=== PATIENT | male | born 1960 | race Caucasian/White ===

== ENCOUNTER 2020-02-22 05:10 | Observation (INO) ==
--- NOTE | 2020-01-19 15:17 | PAT Medication Instructions ---
Medication Instructions Date of Service January 19, 2020 Home Medications Medication Instructions Recorded omega-3 fatty acids 1,000 mg 1,000 mg PO BID #180 cap 12/13/19 capsule fluconazole 150 mg tablet 150 mg PO Q7D 0 Days #2 tab 01/17/20 ketoconazole 2 % topical cream 1 appln TOP BID #60 gm 01/17/20 aspirin 325 mg tablet 325 mg PO QAM omega-3 fatty acids 1,000 mg capsule 1,000 mg PO BID fenofibrate nanocrystallized 145 mg PO QAM fluconazole 150 mg tablet 150 mg PO Q7D ketoconazole 2 % topical cream 1 appln TOP BID Continue as directed fluconazole 150 mg tablet 150 mg PO Q7D ASK your prescriber and surgeon aspirin 325 mg tablet 325 mg PO QAM STOP taking 2 weeks before surgery (or as soon as possible if surgery is within 2 weeks) omega-3 fatty acids 1,000 mg capsule 1,000 mg PO BID STOP taking 48 hours before surgery fenofibrate nanocrystallized 145 mg PO QAM STOP taking 24 hours before surgery ketoconazole 2 % topical cream 1 appln TOP BID Other Notes If you have any questions please call us at [phone] or [phone] or [phone] or [phone]
--- NOTE | 2020-02-14 08:42 | Anesthesiology Consultation ---
Date of Service February 14, 2020 Assessment & Plan (1) Encounter for pre-operative examination: Per PAT assessment on 02/13: Travel screen: Lives in [facility]. No known COVID-19 positive contacts. No current COVID-19 related symptoms. Surgeon arranging preop COVID testing on 02/16 ([place]). Awaiting results. - ASA instructions per surgeon/prescriber Chart Review Chart Review: Acceptable Risk for Surgery and Patient seen in Pre Admission Testing Teaching & Discussion Pre-Anesthesia Teaching/Discussion Notes: Instructed NPO after midnight before surgery,except medications with 15 cc of water. Medication instructions provided according to the PAT guidelines. History Surgery Operation Date: 02/22/20 07:15 Proposed Procedures p Right Total Hip Replacement - Flakito Quevedo MD Height/Weight Height: 5 ft 11 in Weight: 100.5 kg Allergies Allergy/AdvReac Type Severity Reaction Status Date / Time No Known Allergies Allergy Verified 01/17/20 11:40 Medications Home Medications Medication Instructions Recorded Confirmed Last Taken aspirin 325 mg tablet 325 mg PO QAM 12/09/18 01/17/20 Unknown omega-3 fatty acids 1,000 mg 1,000 mg PO BID #180 cap 12/13/19 01/17/20 Unknown capsule fenofibrate nanocrystallized 145 mg PO QAM 01/17/20 01/17/20 Unknown Past Medical History Medical History (Updated 02/14/20 @ 08:55 by Tonia Horowitz) DVT (deep venous thrombosis) Left subclavian thrombus (2017); previously on xarelto/since discontinued Elevated triglycerides with high cholesterol (Chronic) History of renal calculi Liver abscess 2003, drained at [facility] [place] Osteoarthritis Exercise / Class Metabolic Activity II 4-5 Yardwork/Stairs/Walk up hill Past Family History Family History Mother Cancer, Onset Age: 70 pancreatic Diabetes Father Heart disease, Onset Age: 70 smoker Sister Breast cancer, Onset Age: 57 healthy now at age 60 Past Surgical History Surgical History History of colonoscopy x2 History of tooth extraction Hx of mastoidectomy as child Hx of nephrolithotomy with removal of calculi Past Anesthesia History No Hx of Anesthesia Complications and No Family Hx of Anesthesia Complications History of PONV No Hx of PONV and No Hx of Motion Sickness Social History Smoking Status: Current every day smoker tobacco type: cigarettes Smoking cigarettes per day: 10 (tobacco use x 30 years) Do You Dip or Chew Tobacco: No Hx Alcohol Use: No Hx Substance Use: No substance use type: does not use Review of Systems Patient denies chest pain, shortness of breath, dyspnea on exertion, fever, chills, cough, wheezing, palpitations. Physical Exam Vital Signs VITALS BP 142/89 P 80 TEMP 98.4 SP02 96%RA RESP 16 PHYSICAL Full neck and c-spine range of motion. Full TMJ range of motion. TMD 3 finger breaths Mallampati Score 2 Dentition: missing molars, + 2 caps (upper front, molar) Lungs: clear throughout to auscultation Cardiac: regular rate and rhythm, no murmurs noted Spine: normal Carotid arteries: negative bruit Extremities: no edema Testing Laboratory Results 02/14/20 09:00 02/14/20 09:00 PT 10.4 Seconds (9.0-12.0) 02/14/20 09:00 INR 1.0 (0.9-1.1) 02/14/20 09:00 APTT 26.2 Seconds (21.0-31.0) 02/14/20 09:00 Blood Type A Positive 02/14/20 09:00 Antibody Screen NEGATIVE 02/14/20 09:00 Electrocardiogram Date: 02/14/20 Findings: + NSR @ (68) Chest X-Ray Date: 02/14/20 FINDINGS: The cardiac and mediastinal contours are normal. There is no evidence of focal pulmonary consolidation. There is no evidence of failure. No pleural effusions are visualized.[Degenerative changes are present within the dorsal spine with bridging anterior osteophytosis IMPRESSION: No active disease in the chest. Echocardiogram Date: 08/05/16 EF 65%. No RWMA. Mildly increased cLV wall thickness. No significant valvular disease.
--- NOTE | 2020-02-14 09:43 | XRay Report ---
XR chest Pre-admission PA/Lat CLINICAL HISTORY: Preoperative chest COMPARISON STUDY: No previous studies for comparison. FINDINGS: The cardiac and mediastinal contours are normal. There is no evidence of focal pulmonary co nsolidation. There is no evidence of failure. No pleural effusions are visualized.[Degenerative cote es are present within the dorsal spine with bridging anterior osteophytosis IMPRESSION: No active disease in the chest. ACT 112: Negative or not required by law. Electronically signed by: Stefan Sanchez M.D. 02/14/2020 9:42 AM
[2020-02-14 10:10] LABS: Basophils # (auto) 0.02 K/uL (0-0.2); Basophils % (auto) 0.3 %; Eosinophils # (auto) 0.15 K/uL (0-0.5); Eosinophils % (auto) 2.2 %; Hematocrit (blood only) 43.2 % (42-52); Hemoglobin 14.3 g/dL (14.0-18.0); Immature Granulocytes # (auto) 0.02 K/uL (0.00-0.02); Immature Granulocytes % (auto) 0.3 %; Lymphocytes # (auto) 1.53 K/uL (1.2-3.4); Lymphocytes % (auto) 22.1 %; Mean Corpuscular Hemoglobin 29.2 pg (25-34); Mean Corpuscular Hgb Conc 33.1 g/dL (32-36); Mean Corpuscular Volume 88.2 fL (80-100); Mean Platelet Volume 11.2 fL (7.4-10.4); Monocytes % (auto) 5.8 %; Neutrophils # (auto) 4.79 K/uL (1.4-6.5); Neutrophils % (auto) 69.3 %; Platelet Count 196 K/uL (130-400); RDW Coefficient of Variation 13.4 % (11.5-14.5); RDW Standard Deviation 43.1 fL (36.4-46.3); White Blood Count 6.91 K/uL (4.8-10.8)
[2020-02-14 10:19] LABS: BUN Creatinine Ratio 13.3 (10-20); Calcium 9.8 mg/dl (8.5-10.1); Creatinine Clr Calc Pharmacy 79.1 ml/min; Est GFR (African American) 74.5; Est GFR (Non-African American) 64.3; Potassium 4.5 mmol/L (3.5-5.1)
[2020-02-14 10:21] LABS: Partial Thromboplastin Ratio 0.9; Partial Thromboplastin Time 26.2 Seconds (21.0-31.0); Prothrombin Time 10.4 Seconds (9.0-12.0)
--- NOTE | 2020-02-14 11:40 | Electrocardiogram Report ---
Test Reason : Blood Pressure : / mmHG Vent. Rate : 068 BPM Atrial Rate : 068 BPM P-R Int : 158 ms QRS Dur : 086 ms QT Int : 382 ms P-R-T Axes : 070 046 062 degrees QTc Int : 406 ms Normal sinus rhythm Normal ECG No previous ECGs available Confirmed by Miguel Angel Cintron ([id number]) on 02/14/2020 11:40:27 AM Referred By: Flakito Quevedo Confirmed By:Eleuterio Cintron
--- NOTE | 2020-02-18 12:38 | History and Physical Report ---
DATE OF ADMISSION: 02/22/2020 CHIEF COMPLAINT: Right hip pain. HISTORY OF PRESENT ILLNESS: The patient is a 59-year-old gentleman who presents for surgical treatment of the right hip. He has a several year history of gradually increasing right hip pain and discomfort. He describes fairly classic groin pain, thigh pain, lateral hip pain. 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 He takes Tylenol, occasional anti-inflammatories which do not quite help much. He has been to pain clinic and had some nerve burning in his back, which has not helped with his hip pain but help some of his back pain. He has difficulty putting his shoes and socks on. Pain is a good as day goes on. He limps more as the day goes on. He would like to have his right hip fixed. PAST MEDICAL HISTORY: 1. DVT in his left upper extremity 2 years ago with a negative workup and off all blood thinners except for aspirin. 2. Elevated cholesterol. PAST SURGICAL HISTORY: Includes: 1. Abscess removed from his liver in 2003. 2. Kidney stone. 3. Nerve ablations in his back in 2019. ALLERGIES: None. CURRENT MEDICATIONS: 1. Aspirin. 2. [place]-3. 3. Fenofibrate. SOCIAL HISTORY: A 59-year-old male. He lives in [place]. He is . Two children. Rare alcohol intake. FAMILY HISTORY: Significant for diabetes and heart disease. REVIEW OF SYSTEMS: Significant for DVT in his upper extremity. He had a negative hematological workup. No known clotting disorder. Denies any chest pain or shortness of breath. No history of DVT or PE. No known bleeding problems. PHYSICAL EXAMINATION: GENERAL: Shows a pleasant, middle-aged male, looks to be in pretty good health. HEENT: Benign. NECK: Supple, no lymphadenopathy. LUNGS: Clear to auscultation. HEART: Regular rate and rhythm. ABDOMEN: Soft, nontender, nondistended. EXTREMITIES: Grossly neurovascularly intact except as follows. Examination of the right leg reveals the patient walks with a slight bit of a limp. Leg lengths clinically appear pretty equal. Maybe just a trace bit short on the right side. He has a very stiff hip with internal rotation to neutral, which recreates his pain. Negative straight leg raise. He is neurologically intact. X-RAYS: X-rays of the right hip were reviewed. Shows advanced right hip DJD. He has got complete loss of his superior joint space. Extensive osteophytes around the acetabulum and femoral head. He has got cystic change of the femoral head and acetabulum. ASSESSMENT: A 59-year-old male with advanced right hip degenerative joint disease. He has failed conservative treatment and would like to have his right hip replaced. PLAN: We are going to proceed with right total hip replacement. The risks and benefits of this procedure were explained to the patient including but not limited to DVT, PE, , infection, neurological injury, vascular injury. Persistent pain, incomplete relief of symptoms, need for blood transfusion, leg length inequality, fracture, nerve palsy, etc. The patient understands and desires to proceed. Informed consent was obtained. He does have a history of 1 DVT in his upper extremity and a negative workup. We will plan on using aspirin twice a day and CRISTIAN stockings and SCDs for DVT prophylaxis along with early mobilization. He does have a significant smoking history and we have counseled him on this previously. He will likely need a patch in the hospital.
[2020-02-22] MEDS ORDERED: LR 60ML/HR IV SCH (06:00)
[2020-02-22] MEDS ORDERED: GABAPENTIN 600 MG DOSE PO SCH (06:00)
[2020-02-22] MEDS ORDERED: CEFAZOLIN 2000MG 2,000 MG/15 ML SYR IV SCH (06:00)
[2020-02-22] MEDS ORDERED: METOCLOPRAMIDE HCL 10 MG TABLET PO SCH (06:00)
[2020-02-22] MEDS ORDERED: ACETAMINOPHEN 500 MG TAB PO SCH (06:00)
[2020-02-22] MEDS ORDERED: TRANEXAMIC ACID 1,000 MG **IV Pre-op IV SCH (06:00)
[2020-02-22] MEDS ORDERED: FAMOTIDINE 20 MG TAB PO SCH (06:00)
[2020-02-22] MEDS ORDERED: LR 500ML BOLUS, THEN 15ML/HR IV SCH (06:00)
[2020-02-22] MEDS ORDERED: BUPIVACAINE 0.5 % 5 MG/1 ML PF 10ML VIAL ONE (06:18)
[2020-02-22] MEDS ORDERED: LIDOCAINE HCL 2% 2 ML VIAL/AMP(20MG/ML) INFIL ONE (06:41)
[2020-02-22] MEDS ORDERED: MIDAZOLAM HCL 1 MG/ML 2ML VIAL ONE ×3 (06:41→07:54)
[2020-02-22] MEDS ORDERED: fentaNYL citrate 100 MCG/2 ML VIAL ONE (06:41)
[2020-02-22] MEDS ORDERED: PROPOFOL IV EMULSION 10 MG/ML 20 ML VIAL IV ONE (06:41)
--- NOTE | 2020-02-22 06:45 | History & Physical Bridge Note ---
Date of Service February 22, 2020 History & Physical Bridge Note I have examined the patient, reviewed the History & Physical and in the interval since the performance of the History & Physical I have noted the following changes of clinical significance: no changes noted
[2020-02-22] MEDS ORDERED: MoRPHine SULFATE PF 1 MG/ML 10 ML AMP/VIAL ONE (07:00)
[2020-02-22] MEDS ORDERED: BUPIVACAINE 0.5 % 5 MG/1 ML MPF 30ML VIAL ONE (07:00)
[2020-02-22] MEDS ORDERED: BACITRACIN INJ 50,000 UNIT VIAL ONE (07:00)
[2020-02-22] MEDS ORDERED: EPINEPHrine INJ 1 MG/ML AMP ONE (07:00)
[2020-02-22] MEDS ORDERED: ONDANSETRON INJ 2 MG/ML 2 ML VIAL IV PRN (07:27)
[2020-02-22] MEDS ORDERED: MoRPHine SULFATE 2 MG/ML CARP IV PRN (07:27)
[2020-02-22] MEDS ORDERED: NALOXONE HCL 1 MG in SODIUM CHLORIDE 0.9% 1000ML 1,000 ML IV PRN (07:27)
[2020-02-22] MEDS ORDERED: ePHEDrine sulfate 50 MG/ML AMP IV PRN (07:27)
[2020-02-22] MEDS ORDERED: NALOXONE HCL 0.08 MG in SYRINGE 1.8 ML IV PRN (07:27)
[2020-02-22] MEDS ORDERED: MoRPHine SULFATE PF 1 MG/ML 10 ML AMP/VIAL INT SPINAL ONE (07:27)
[2020-02-22] MEDS ORDERED: LACTATED RINGER'S 500 ML IV PRN (07:27)
[2020-02-22] MEDS ORDERED: DiphenhydrAMINE HCL 50 MG/ML VIAL IV PRN (07:27)
[2020-02-22] MEDS ORDERED: NALOXONE HCL 0.4 MG/1 ML VIAL/CARP IV PRN (07:27)
[2020-02-22] MEDS ORDERED: DC INTRASPINAL MORPHINE SCH (07:30)
[2020-02-22] MEDS ORDERED: SODIUM CHLORIDE 0.9% 1000ML 1,000 ML IV SCH (07:30)
[2020-02-22] MEDS ORDERED: NO NARCOTICS OR SEDATIVES SCH (07:30)
[2020-02-22] MEDS ORDERED: SODIUM CHLORIDE 0.9% INJ 10 ML VIAL ONE (08:31)
--- NOTE | 2020-02-22 08:40 | Post Operative Brief Note ---
PG Immediate Post Op with CF Date of Surgery February 22, 2020 Pre & Post Diagnosis Operation Date: 02/22/20 07:15 Pre-Op Diagnosis: RIGHT HIP DEGENERATIVE JOINT DISEASE Post-Op Diagnosis: RIGHT HIP DEGENERATIVE JOINT DISEASE I identified the patient and participated in the time-out.: Yes Procedure Operation Date: 02/22/20 07:15 Actual Procedures p Right Total Hip Replacement(Right) - Flakito Quevedo MD Surgeon Flakito Quevedo MD Precision Jig Grinder Catrina, PAC Estimated Blood Loss 200 Findings Consistent with Post-Op Diagnosis Fluids 1200 cc Specimens Specimen Description: Permanent Specimen: A) Right Femoral Head Drains Mendoza Catheter and Hemovac Drain Anesthesia Type Spinal MAC Complications none Disposition Accompanied Patient To Recovery: Yes Disposition: Recovery Room
--- NOTE | 2020-02-22 08:59 | XRay Report ---
SINGLE VIEW PELVIS; SINGLE VIEW RIGHT HIP CLINICAL HISTORY: Postoperative examination. FINDINGS: An AP portable view of the hips and pelvis with a crosstable lateral portable view of the r ight hip are obtained. A bipolar right hip arthroplasty is in near-anatomic alignment. At least 2 cor tical lag screws transfix the acetabular cup. No acute fracture is identified. There are expected pos toperative changes overlying the right hip including skin clips, subcutaneous gas, and soft tissue s welling. Mild degenerative narrowing is seen in the left hip. A Mendoza catheter is in place. IMPRESSION: Expected postoperative findings status post right hip arthroplasty. No acute fracture is seen. ACT 112: Negative or not required by law. Electronically signed by: Ashok Hickman M.D. 02/22/2020 8:58 AM
--- NOTE | 2020-02-22 09:03 | Operative Report ---
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 He had extensive grade 4 [id number] disease of the femoral head and acetabulum. Pretty significant medial osteophyte as well as anterior acetabular osteophytes. Fluids 1200 cc. Specimens Right femoral head sent for pathology. Drains None. 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 He failed all conservative measures. It was really limit his activities and even ability to perform his job appropriately. X-ray showed advanced hip DJD. He elected proceed with surgical treatment. Description of Procedure Operative implants consist of: 1. Biomet G7 size 56 mm acetabular shell. 2. 6.5 cancellus acetabular screws 1 of 35 mm length and 125 mm length. 3. What Cheer hole vp legal affairs. 4. Highly cross-linked polyethylene liner with a 56 mm outer diameter and 36 mm inner diameter. 5. Depuy Corail size 11 KLA femoral stem. 6. +5/36 mm ceramic articular ball. Patient was taken to the operating identified and placed on the operating table supine position protectors were properly padded. IV antibiotics arrived by anesthesia team. A spinal anesthetic had been implemented holding area. Mendoza catheter was placed in sterile fashion. The patient then placed in the left lateral cubitus position. An axillary roll was placed. Stulberg hip positioner was used for positioning. The right hip and leg were then prepped and draped in usual sterile fashion. A posterior lateral approach to the right hip was then performed to a curvilinear incision centered over the greater trochanter. Sharp dissection got through subcutaneous tissue down to level the IT band gluteal fascia the IT band gluteal fascia were then incised longitudinally in line with the skin incision. The underlying greater truck bursa was excised. The piriformis and external rotators were tagged and taken off the posterior aspect hip joint capsule. Great care was taken throughout the procedure protect the sciatic nerve at all times. A posterior capsulotomy was then performed leaving a large flap for later repair. Hip was internally rotated and dislocated. Femoral neck osteotomy cut was made with Final Cut 14 mm above the lesser trochanter. Femoral head was removed and sent for pathology. The femur was retracted anteriorly. Attention drawn the acetabulum. The acetabular labrum was excised. The pulmonary fat was excised. Sequential reaming the acetabular was then performed again with size 45 and progressing up to 55. We did reamed centrally but I did not want a medialized this too much as he had quite a bit of offset and I did not 1 of make his hip soft tissue tension to lax. A 56 mm Biomet G7 acetabular shell was then placed in about 40 degrees lateral opening and 20 degrees of anteversion. Was fixed with two 6.5 cancellus acetabular screws. An anterior acetabular osteophyte was excised. Trial liner was placed. Attention drawn the femur. The proximal femur was entered with a cookie-cutter followed by canal finder. I then broached begin the size 8 and progressing up to 11. Got excellent fit at 11. A +5 articular ball was then checked. The soft tissue tension was little bit lax but was extremely stable in all positions and leg length seemed equal so we elected to place these implants. All trial implants were removed. An apex hole eliminator was placed. Highly cross-linked polyethylene liner was placed. I [place] Corail size 11 KLA femoral stem was then impacted in position. A +5/36 mm ceramic articular ball was placed. Hip was located once again found to be stable. Attention drawn toward closing. The wound was irrigated with copious amounts of pulsatile lavage solution. I did inject locally with 60 cc of half percent Marcaine with epinephrine. The posterior capsule and external rotators were then repaired through drill holes in the posterior trochanter with #2 Tycron suture. The IT band gluteal fascia then closed #1 PDS suture running fashion. The subcutaneous tissue was then closed with 2 layers the deep layer #1 Vicryl suture and subcutaneous tissues with 2-0 Dexon suture in a buried interrupted fashion the skin was then closed with skin bia. Leg was then cleaned dried a sterile dressing composed of Xeroform, 4 x 4's, ABD pad and foam tape was applied. Patient then transferred to the recovery in stable condition. The patient tolerated procedure well and there were no complications. Barrington Fritz, my physician blacksmith assistant, was present for the entire procedure. His presence was critical to appropriate positioning, prepping and draping, surgical exposure, performing the technical details of the operation, placement of the implants, closure of the wound, and placement of the sterile bandage. I attest to the content of the Intraoperative Record and any orders documented therein. Any exceptions are noted below.
[2020-02-22] MEDS ORDERED: MAGNESIUM HYDROXIDE SUSP 30 ML UDC PO PRN (09:45)
[2020-02-22] MEDS ORDERED: bisacodyL 10 MG SUPP PR PRN (09:45)
[2020-02-22] MEDS ORDERED: TAMSULOSIN HCL 0.4 MG CAP PO PRN (09:45)
[2020-02-22] MEDS ORDERED: ALUMINUM/MAGNESIUM SUSP 30 ML UDC PO PRN (09:45)
[2020-02-22] MEDS: SODIUM CHLORIDE 0.9% 1000ML 1,000 ML IV SCH ×3 (10:15→23:22)
[2020-02-22] MEDS: MULTIVITAMIN TAB PO SCH (10:32)
[2020-02-22] MEDS: ASPIRIN 81 MG ECTAB PO SCH ×2 (10:32→20:37)
[2020-02-22] MEDS: DOCUSATE SODIUM 100 MG CAP PO SCH ×2 (10:32→20:37)
[2020-02-22] MEDS: FENOFIBRATE NANOCRYSTALLIZED 145 MG TABLET PO SCH (10:33)
[2020-02-22] MEDS: KETOROLAC 30 MG/ML VIAL IV SCH ×3 (11:17→23:28)
[2020-02-22] MEDS: ACETAMINOPHEN 500 MG TAB PO SCH ×2 (13:09→21:20)
--- NOTE | 2020-02-22 13:59 | Progress Notes ---
DATE: 02/22/2020 SUBJECTIVE: A 59-year-old gentleman postop from a right hip replacement. He is doing well. Feels great. Does not have any pain yet. No chest pain or shortness of breath. Feels a little bit itchy and that is it. OBJECTIVE: VITAL SIGNS: Temperature 36.5. Vital signs stable. GENERAL: Physical examination shows a pleasant, middle-aged male. He is sitting up in bed and looks quite comfortable. LUNGS: Clear to auscultation. HEART: Has a regular rate and rhythm. ABDOMEN: Soft, nontender, nondistended. EXTREMITIES: Grossly neurovascularly intact except as follows. Examination of the right hip and leg reveals the leg lengths to be equal. His dressing is clean, dry and intact. His thigh is soft and supple. Hip is located. He is neurologically intact. X-RAYS: X-rays of the right hip from Recovery Room reviewed. It shows a right uncemented total hip arthroplasty. Components looked to be in good position. No signs of problems. ASSESSMENT: A 59-year-old gentleman postop from a right hip replacement, doing well. Pain is controlled. Hip is located. He is neurologically intact. PLAN: 1. DVT prophylaxis include thigh-high TEDs, SCDs, and aspirin twice a day. 2. PT/OT, weightbear as tolerated. Right total hip protocol. 3. Pain control, doing well with current pain regimen. 4. IV antibiotics x24 hours. 5. Disposition: Plan to discharge to home with some home health once adequately recovered and medically stable.
[2020-02-22] MEDS ORDERED: TRANEXAMIC ACID / 0.7% NACL 1,000 MG/100 ML BAG IV SCH (14:43)
--- NOTE | 2020-02-22 16:27 | Anesthesiology Progress Note ---
Date of Service February 22, 2020 Anesthesia Post Procedure Vital Signs Vital Signs: Temp Pulse Pulse Pulse Resp BP BP 02/22/20 15:30 16 02/22/20 15:14 36.7 C 60 18 119/72 02/22/20 14:36 15 02/22/20 13:35 16 02/22/20 12:35 36.5 C 62 17 118/77 02/22/20 11:35 17 02/22/20 11:33 36.4 C L 56 L 17 119/77 02/22/20 10:35 57 L 16 112/73 02/22/20 10:05 60 16 114/74 02/22/20 09:35 36.5 C 58 L 15 02/22/20 09:20 62 13 107/60 02/22/20 09:10 36.4 C L 63 14 107/67 02/22/20 09:00 61 17 105/57 L 02/22/20 08:50 62 17 96/66 L 02/22/20 08:41 36.0 C L 62 15 99/55 L 02/22/20 05:38 36.7 C 70 18 126/85 Pulse Ox Pulse Ox 02/22/20 15:30 96 02/22/20 15:14 98 02/22/20 14:36 96 02/22/20 13:35 97 02/22/20 12:35 97 02/22/20 11:35 96 02/22/20 11:33 96 02/22/20 10:35 95 02/22/20 10:05 96 02/22/20 09:35 96 96 02/22/20 09:20 95 02/22/20 09:10 94 02/22/20 09:00 100 02/22/20 08:50 100 02/22/20 08:41 99 02/22/20 05:38 96 Transfer of Care Handoff Completed per policy Notes Mental Status: alert / awake / arousable and participated in evaluation Patient Amnestic to Procedure: Yes Nausea / Vomiting: adequately controlled Pain: adequately controlled Airway Patency, RR, SpO2: stable & adequate BP & HR: stable & adequate Hydration State: stable & adequate Neuraxial Anesthesia: was administered and sensory block is resolving Anesthetic Complications: no major complications apparent and Pt Satisfied with anesthetic care
[2020-02-22] MEDS: CEFAZOLIN 2000MG 2,000 MG/15 ML SYR IV SCH ×2 (16:54→23:27)
[2020-02-22] MEDS: Scopolamine CHECK PATCH PLACEMENT SCH (16:54)
[2020-02-22] MEDS: ASCORBIC ACID 500 MG TAB PO SCH (16:54)
[2020-02-22] MEDS: FERROUS GLUCONATE 324 MG TAB PO SCH (16:54)
[2020-02-22] MEDS: OMEGA-3 (PURIFIED FISH OIL) 1 GM CAP PO SCH (20:37)
[2020-02-22] MEDS ORDERED: SENNA 8.6 MG TAB PO SCH (21:00)
[2020-02-23] MEDS: Scopolamine CHECK PATCH PLACEMENT SCH ×2 (01:16→07:12)
[2020-02-23] MEDS ORDERED: NALOXONE HCL 0.4 MG/1 ML VIAL/CARP IV PRN (01:28)
[2020-02-23] MEDS ORDERED: HYDROmorphone INJ 0.5 MG/0.5 ML SYR IV PRN (01:28)
[2020-02-23] MEDS ORDERED: ONDANSETRON INJ 2 MG/ML 2 ML VIAL IV PRN (01:28)
[2020-02-23] MEDS ORDERED: TRAMADOL HCL 50 MG TABLET PO PRN (01:28)
[2020-02-23] MEDS ORDERED: METOCLOPRAMIDE HCL INJ 5 MG/ML 2 ML VIAL IV PRN (01:28)
[2020-02-23] MEDS: KETOROLAC 30 MG/ML VIAL IV SCH ×2 (05:48→11:28)
[2020-02-23] MEDS: ACETAMINOPHEN 500 MG TAB PO SCH ×2 (05:48→13:51)
[2020-02-23 05:51] LABS: Basophils # (auto) 0.01 K/uL (0-0.2); Basophils % (auto) 0.1 %; Eosinophils # (auto) 0.08 K/uL (0-0.5); Hematocrit (blood only) 34.3 % (42-52); Hemoglobin 11.3 g/dL (14.0-18.0); Immature Granulocytes # (auto) 0.01 K/uL (0.00-0.02); Immature Granulocytes % (auto) 0.1 %; Lymphocytes % (auto) 11.2 %; Mean Corpuscular Hemoglobin 28.5 pg (25-34); Mean Corpuscular Hgb Conc 32.9 g/dL (32-36); Mean Corpuscular Volume 86.6 fL (80-100); Mean Platelet Volume 10.7 fL (7.4-10.4); Monocytes # (auto) 0.81 K/uL (0.11-0.59); Monocytes % (auto) 10.1 %; Neutrophils # (auto) 6.24 K/uL (1.4-6.5); Neutrophils % (auto) 77.5 %; Platelet Count 114 K/uL (130-400); RDW Coefficient of Variation 13.4 % (11.5-14.5); RDW Standard Deviation 42.8 fL (36.4-46.3); Red Blood Count 3.96 M/uL (4.7-6.1); White Blood Count 8.05 K/uL (4.8-10.8)
[2020-02-23] MEDS: SODIUM CHLORIDE 0.9% 1000ML 1,000 ML IV SCH (05:59)
[2020-02-23 06:24] LABS: BUN Creatinine Ratio 16.4 (10-20); Calcium 8.1 mg/dl (8.5-10.1); Creatinine Clr Calc Pharmacy 112.8 ml/min; Est GFR (African American) 110.8; Est GFR (Non-African American) 95.6; Potassium 4.4 mmol/L (3.5-5.1)
--- NOTE | 2020-02-23 07:28 | Orthopedic Progress Note ---
Date of Service February 23, 2020 Assessment & Plan (1) Status post total hip replacement, right: seen and examined by Dr. Quevedo today. d/c home today with home health, after PT continue pt/ot, wbat and total hip precautions. pain is controlled. dvt prophylaxis: teds, scds, aspirin Admission and Anticipated Discharge Date Admission Date: February 22, 2020 Subjective 59 y/o POD #1 from right total hip replacement. He's doing pretty well. Some groin pain and difficulty raising his right leg on his own. No chest pain or shortness of breath. Physical Exam Physical Exam: Alert and oriented. VSS, NAD Right leg: dressing clean, dry, intact. leg well aligned, hip located. NVI. Able to DF/PF, and flex his hip some. Results & Data ([facility]) Vital Signs (Past 12 Hours) Vital Signs Temp Pulse Resp BP Pulse Ox 02/23/20 07:18 36.9 C 68 17 133/78 96 02/23/20 03:46 36.8 C 73 18 121/68 97 02/23/20 00:30 16 97 02/22/20 23:15 36.7 C 76 18 116/72 96 02/22/20 21:30 16 97 02/22/20 20:30 18 96 02/22/20 19:31 36.8 C 67 18 146/69 H 97 PG Care Time/CCT Total # of Minutes Spent Total Time Spent with Patient: Total time spent is greater than 50% in coordination of care (as documented) at patient's floor/unit and/or counseling patient: Coding Level of Care Code None Diagnoses Status post total hip replacement, right Z96.641
[2020-02-23] MEDS: ASPIRIN 81 MG ECTAB PO SCH (08:32)
[2020-02-23] MEDS: OMEGA-3 (PURIFIED FISH OIL) 1 GM CAP PO SCH (08:32)
[2020-02-23] MEDS: ASCORBIC ACID 500 MG TAB PO SCH (08:32)
[2020-02-23] MEDS: DOCUSATE SODIUM 100 MG CAP PO SCH (08:32)
[2020-02-23] MEDS: FERROUS GLUCONATE 324 MG TAB PO SCH (08:32)
[2020-02-23] MEDS: MULTIVITAMIN TAB PO SCH (08:33)
[2020-02-23] MEDS: FENOFIBRATE NANOCRYSTALLIZED 145 MG TABLET PO SCH (08:33)
[2020-02-23 11:26] VITALS: BP 159/85; PULSE 62; TEMP 99; O2SAT 94
--- NOTE | 2020-02-27 16:16 | Discharge Summary ---
Date of Service February 27, 2020 Admission HPI Per Admitting Provider Documented in the H & P Admission Exam (Per Admitting) Constitutional Documented in the H & P Discharge Data Consultations 02/23/20 08:00 Consult Case Management - Discharge Planning Routine Procedures Performed Operation Date: 02/22/20 07:15 Actual Procedures p Right Total Hip Replacement(Right) - Flakito Quevedo MD Hospital Course (1) Status post total hip replacement, right: This patient is a 59 year old male admitted on 02/22/20 and underwent total hip arthroplasty. He tolerated the procedure well and there were no complications. Transferred to the PACU post op and later to the orthopedic floor for further care. He was given ancef for antibiotic prophylaxis. He was also gi ginger CRISTIAN stockings, SCDs, and aspirin for DVT prophylaxis. Hemoglobin, hematocrit, and vital signs were monitored during his hospital stay and remained stable. Did not require any blood transfusions. There were no complications during his hospital stay. By post op day #1 the patient was tolerating a regular diet, pain was reasonably controlled with oral pain medicine, and he was participating in physical therapy. On post op day #1 the patient was discharged home and set up with home health care. He was given printed discharge instructions including prescriptions for extra strength tylenol, aspirin, and tramadol. Continue physical therapy, weight bearing as tolerated. Total hip precautions. Continue CRISTIAN stockings. Follow up approximately 2 weeks post op or sooner if there are problems or c oncerns. Coding Level of Care Code None Diagnoses Status post total hip replacement, right Z96.641
== END 2020-02-23 14:00 | disposition home health service (06) ==
LOC: ASU 05:10 → 3E 05:10

== ENCOUNTER 2022-01-19 09:06 | Inpatient (IN) ==
[2022-01-19] MEDS ORDERED: SODIUM CHLORIDE 0.9% 1000ML 1,000 ML IV ONE (09:25)
[2022-01-19] MEDS ORDERED: ONDANSETRON INJ 2 MG/ML 2 ML VIAL IV STA (09:25)
[2022-01-19] MEDS ORDERED: HYDROmorphone INJ 0.5 MG/0.5 ML SYR IV STA (09:25)
--- NOTE | 2022-01-19 09:28 | Emergency Department Note ---
Impression & Plan Diverticulitis, Vomiting, Failure of outpatient treatment, Colonic obstruction ED Provider Note Name: JORY HOLLINGSWORTH Jr Age: 61 Sex: M Arrives Via: Walk-In Informant: Patient, ED Provider: Reji Pepper MD Chief Complaint: Abdominal pain Impression: As per impressions above Medical Decision Makin-year-old gentleman with a history of diabetes, hypertension, dyslipidemia, thrombophlebitis arrives for evaluation of left lower quadrant abdominal pain, vomiting. On exam he is quite tender in the left lower quadrant but does not have acute peritonitis. Vitals are unremarkable. Labs reveal mild white blood cell count elevation. CT obtained which reveals large area of sigmoid colon inflammation consistent with diverticulitis. I am concerned there may be obstruction or even abscess and thus general surgeon was consulted who is concerned that patient may be obstructed as well. He advised NG tube however patient declines having this done as he is not actively vomiting though is aware that it is advised by both me and the surgeon. He was kept comfortable with IV narcotics and some IV Zofran. Plan is to hospitalize with GI evaluation and general surgery on board. He was given IV Mefoxin for treatment of diverticulitis. Prior Medical Record and Triage/Nursing Notes reviewed by Me Additional history obtained from chart Differentials:Appendicitis, testicular torsion, infections, diverticulitis, UTI, obstruction, mesenteric ischemia, aortic pathology, inflammatory bowel disease, renal colic, PUD, pancreatitis, biliary pathology, hernia, volvulus, constipation, as well as other pathologies. Vital Signs: reviewed and remarkable for no significant abnormalities Interventions: Dilaudid IV x3, Ativan 1 mg IV, normal saline bolus IV, Mefoxin IV, Zofran IV Labs:Reviewed and remarkable for mildly elevated white blood cell count Imaging:CT imaging as per radiologist CT there read. Sigmoid diverticulitis without abscess or perforation per radiologist Consults:Dr Cast General surgeon & Dr Mary CHAVEZ Hospitalist Plan: Disposition:Hospitalization. Condition: Good History of Present Illness:Inu-[id number]-[id number] gentleman arrives for evaluation of abdominal pain. Patient notes 1 week of worsening abdominal pain. Patient states pain is in the left lower quadrant without radiation. He had been started on Augmentin several days ago for possible diverticulitis after discussing with his PCP. Over the last 4 to 5 days he has had 0 bowel outs and is not passing any gas. Overnight he started vomiting notes multiple episodes of emesis. There is no blood in the emesis. Previously no blood in his stool. He denies any previous abdominal surgeries. He has no history of diverticulitis but did have a colonoscopy which showed diverticula. Patient notes initially he had had associated fevers which broke after starting ibuprofen as well as the Augmentin last week. He had a COVID test a few days ago which was negative. He denies any falls, trauma, injuries. He denies any pain, chest pain, shortness of breath, headache, neck pain, rashes, bleeding/bruising, leg swelling, calf pain or other concerning signs or symptoms. Patient has a history of a left upper arm DVT. He has had no previous abdominal surgeries. ROS: See above HPI for pertinent positives & negatives. A total of 10 systems reviewed and were otherwise negative. Past Medical History:Diabetes, hypertension, dyslipidemia, DVT/thrombophlebitis Past Surgical History:Right hip replacement Family History:See Below Social History:See Below Home Medications:See Below Allergies:nkda Vitals:Blood Pressure: 122/75, Pulse 90, RR 18, T 36.8C, O2 99% on RA Physical Exam: GENERAL: Patient is uncomfortable, nauseous appearing and in moderate distress. EYES: No scleral icterus, unremarkable pupils. ENT: Mucous membranes dry, no nasal congestion. NECK: No masses appreciated, nomeningismus, trachea is midline. RESPIRATORY: No dyspnea. Clear to auscultation and equal bilaterally. No wheeze, no rhonchi. CARDIOVASCULAR: Regular rate and rhythm.No murmurs, rubs, gallops appreciated. GASTROINTESTINAL: Mild TTP LLQ, otherwise abdomen soft, non-tender, no peritonitis.Bowel sounds positive.No masses appreciated. BACK: No midline tenderness, no CVA tenderness EXTREMITIES: Normal motion all extremities, no cyanosis, no edema. NEUROLOGIC: Alert and oriented, no acute motor or sensory deficits, no focal weakness, cranial nerves grossly intact. SKIN: No rash, no jaundice, no diaphoresis. PSYCH: Appropriate GCS: 15 ED Course: Times/Reassessments: Patient stable pain is being controlled with periodic doses of pain medicines. He is agreeable to hospitalization. He declines having NG tube placed and understands it is advised per general surgery. Reji Pepper MD Past Med/Surg History Medical History DVT (deep venous thrombosis) Left subclavian thrombus (2017); previously on xarelto/since discontinued Elevated triglycerides with high cholesterol History of renal calculi Liver abscess 2003, drained at [facility] [place] Osteoarthritis Surgical History History of colonoscopy x2 History of tooth extraction Hx of mastoidectomy as child Hx of nephrolithotomy with removal of calculi Family History Mother Cancer, Onset Age: 70 pancreatic Diabetes Father Heart disease, Onset Age: 70 smoker Sister Breast cancer, Onset Age: 57 healthy now at age 60 Social History Smoking Status: Current every day smoker Age Started Using Tobacco: 19; packs per day: 0.5; Years Smoked: 40; Cigarettes Per Day: 10 (tobacco use x 30 years); Second Hand Exposure: No; Hx Alcohol Use: No Hx Substance Use: No Preferred Language: Chinese Communication Ability: Effective Visual Impairment: No Limitations Hearing Ability: Normal Hand Tool Lapper Required: No Beliefs That Will Affect Care: None marital status: Current Living Situation: Spouse current occupational status: employed 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 Feels Safe at Home: Yes Dental Care, Regularly: No Physical Activity Frequency: Does not Exercise Seatbelt Use: always Sunscreen Use: Yes Assistive Devices: Glasses Allergies Allergies Allergy/AdvReac Type Severity Reaction Status Date / Time No Known Allergies Allergy Verified 10/11/21 08:44 Home Meds Previous Rx's Medication Instructions Recorded omega-3 fatty acids 1,000 mg 1,000 mg PO BID #180 cap 12/13/19 capsule blood-glucose meter (OneTouch #1 ea 09/20/20 Verio Meter) lancets 33 gauge (OneTouch Delica #50 ea 09/20/20 Lancets) blood sugar diagnostic (OneTouch #50 ea 09/21/20 Verio test strips) fenofibrate 54 mg tablet 54 mg PO DAILY #90 tab 04/08/21 atorvastatin 20 mg tablet 20 mg PO DAILY #90 tab 10/08/21 lisinopril 10 mg tablet 10 mg PO DAILY #90 tab 10/11/21 metformin 500 mg tablet 500 mg PO DAILY #90 tab 12/10/21 amoxicillin 875 mg-potassium 1 tab PO BID #20 tab 01/17/22 clavulanate 125 mg tablet Results & Data (ED) Vital Signs Vital Signs - 24 hr 01/19/22 09:13 01/19/22 10:00 01/19/22 12:00 Temperature 36.8 C Temperature Source Temporal Artery Scan Pulse Rate 90 Pulse Rate [Finger] 71 63 Respiratory Rate 18 18 16 Respiratory Effort / Characteristics Non-Labored Spontaneous Non-Labored Spontaneous Respiratory Depth Normal Normal Blood Pressure 122/75 Blood Pressure [Right Arm] 116/81 144/89 H Blood Pressure Mean 90 Blood Pressure Mean [Right Arm] 92 107 Blood Pressure Position Sitting Pulse Oximetry 99 95 94 Oxygen Delivery Method Room Air Room Air Room Air Sepsis Recent Fever Within 48 Hours No Sepsis New/Unexplained Change in Mental Status No Sepsis Action Taken by Nursing No Action Required Laboratory Data Result diagrams: 01/19/22 09:40 01/19/22 09:40 Lab Results 01/19/22 01/19/22 01/19/22 Range/Units 09:40 09:40 11:00 WBC 13.33 H (4.8-10.8) K/ul RBC 4.72 (4.63-6.08) M/uL Hgb 13.6 L (14.0-18.0) g/dl Hct 39.9 L (40.1-51.0) % MCV 84.5 (80.0-100.0) fL MCH 28.8 (25.0-34.0) pg MCHC 34.1 (32.0-36.0) g/dL RDW Std Deviation 39.5 (36.4-46.3) fL RDW Coeff of Alan 12.8 (11.5-14.5) % Plt Count 295 (130-400) K/uL MPV 10.1 (9.4-12.4) fL Immature Gran % (Auto) 0.9 % Neut % (Auto) 83.0 % Lymph % (Auto) 8.4 % Candler % (Auto) 6.9 % Eos % (Auto) 0.5 % Baso % (Auto) 0.3 % Neut # (Auto) 11.07 H (1.4-6.5) K/uL Lymph # (Auto) 1.12 L (1.2-3.4) K/uL Candler # (Auto) 0.92 H (0.24-0.82) K/uL Eos # (Auto) 0.06 (0-0.50) K/uL Baso # (Auto) 0.04 (0-0.2) K/uL Immature Gran # (Auto) 0.12 H (0.00-0.02) K/uL Sodium 135 L (136-145) mmol/L Potassium 3.7 (3.5-5.1) mmol/L Chloride 101 (98-107) mmol/L Carbon Dioxide 23 (21-32) mmol/L Anion Gap 11 (3-11) BUN 18 (6-23) mg/dl Creatinine 0.83 (0.6-1.4) mg/dl Est Cr Clr Drug Dosing 108.9 ml/min Est GFR ( Amer) 110.8 ml/min Est GFR (Non-Af Amer) 95.6 ml/min BUN/Creatinine Ratio 21.7 H (10-20) Glucose 171 H (70-99(Fasting)) mg/dl Calcium 10.3 H (8.5-10.1) mg/dl Total Bilirubin 0.7 (0.2-1.0) mg/dl Direct Bilirubin 0.1 (0-0.2) mg/dl AST 12 L (13-39) U/L ALT 13 (7-52) U/L Alkaline Phosphatase 54 (34-104) U/L Total Protein 7.7 (6.0-8.3) gm/dl Albumin 3.9 (3.4-5.0) gm/dl Lipase 17 (11-82) U/L SARS-CoV-2, RNA, NAAT NEGATIVE (NEGATIVE) Administered Medications Discontinued Medications Hydromorphone HCl (Hydromorphone Inj 0.5 Mg/0.5 Ml Syr) 0.5 mg IV NOW STA Stop: 01/19/22 09:26 Last Admin: 01/19/22 09:45 Dose: 0.5 mg Documented by: [id number] Hydromorphone HCl (Hydromorphone Inj 1 Mg/Ml Syringe) 1 mg IV NOW STA Stop: 01/19/22 10:26 Last Admin: 01/19/22 10:27 Dose: 1 mg Documented by: [id number] Hydromorphone HCl (Hydromorphone Inj 1 Mg/Ml Syringe) 1 mg IV NOW STA Stop: 01/19/22 11:54 Last Admin: 01/19/22 12:11 Dose: 1 mg Documented by: [id number] Sodium Chloride (Nss 1000ml) 1,000 mls @ 999 mls/hr IV .Q1H1M ONE Stop: 01/19/22 10:25 Last Infusion: 01/19/22 10:56 Dose: 0 mls/hr Documented by: [id number] Admin: 01/19/22 09:45 Dose: 999 mls/hr Documented by: [id number] Cefoxitin Sodium (Mefoxin) 2,000 mg in 60 mls @ 100 mls/hr IV NOW STA Stop: 01/19/22 11:45 Last Infusion: 01/19/22 12:02 Dose: 0 mls/hr Documented by: [id number] Admin: 01/19/22 11:26 Dose: 100 mls/hr Documented by: [id number] Sodium Chloride (Nss 1000ml) 1,000 mls @ 125 mls/hr IV .Q8H KRIS Stop: 02/18/22 11:59 Last Admin: 01/19/22 12:11 Dose: 125 mls/hr Documented by: [id number] Ioversol (Optiray 320 100ml) 94 ml IV ONCE ONE Stop: 01/19/22 10:58 Last Admin: 01/19/22 10:58 Dose: 94 ml Documented by: [id number] Lorazepam (Lorazepam 2 Mg/1 Ml Vial) 1 mg IV NOW STA; Protocol Stop: 01/19/22 12:17 Last Admin: 01/19/22 13:55 Dose: Not Given Documented by: [id number] Ondansetron HCl (Ondansetron Inj 2 Mg/Ml 2 Ml Vial) 4 mg IV NOW STA Stop: 01/19/22 09:26 Last Admin: 01/19/22 09:45 Dose: 4 mg Documented by: [id number] Imaging Data Radiologist's Impression: Abdomen/Pelvis CT 01/19/22 09:25 CT abd pelvis IV con only CLINICAL HISTORY: LLQ pain, constipation, vomiting TECHNIQUE: Helical axial images of the abdomen and pelvis were obtained and displayed. Automated dose lowering techniques and/or adjustment according to patient size were utilized for this exam. This exam was performed with intravenous contrast. CT DOSE: 669.82 mGy.cm COMPARISON: None available at the time of this dictation. FINDINGS: Lower chest: No acute abnormality Liver: Unremarkable. No focal lesions are seen. Gallbladder and biliary tree: No calcified gallstones. Normal caliber wall. No intra- or extrahepatic biliary ductal dilation. Pancreas: Unremarkable, no focal lesions. Spleen: Unremarkable. Adrenals: 16 mm right adrenal nodule is seen. Kidneys and ureters: Subcentimeter hypodensities are too small to characterize. Bladder: Unremarkable. Reproductive organs: Unremarkable. Bowel: Wall thickening and fat stranding is seen in the sigmoid colon. No eviden ce of perforation or abscess formation is seen. There is gaseous distention of the remainder of the colon. The appendix is normal. A hiatal hernia is seen. Lymph nodes Retroperitoneal: Unremarkable. Mesenteric: Unremarkable. Pelvic: Unremarkable. Peritoneum: Fat stranding is noted about the sigmoid colon. Vessels: Atherosclerotic calcifications are seen. Abdominal wall: Bilateral fat-containing inguinal hernias are seen. Bones: Degenerative changes in the visualized spine. Right total hip arthroplasty is seen. IMPRESSION: Findings are compatible with acute diverticulitis in the sigmoid colon without evidence of perforation or abscess. ACT 112: Negative or not required by law. Electronically signed by: Shadi Weeks M.D. 01/19/2022 11:12 AM Discharge Plan Visit Data Chief Complaint: Constipation Stated Complaint: Constipation ED Provider: Reji Pepper Discharge Problem: Diverticulitis, Vomiting, Failure of outpatient treatment, Colonic obstruction Patient Disposition: Admitted As Inpatient Discharge Instructions Interventions: ED Discharge Assessment Last Done: 01/19/22 13:08
[2022-01-19 09:52] LABS: Basophils # (auto) 0.04 K/uL (0-0.2); Basophils % (auto) 0.3 %; Eosinophils # (auto) 0.06 K/uL (0-0.50); Eosinophils % (auto) 0.5 %; Hematocrit (blood only) 39.9 % (40.1-51.0); Hemoglobin 13.6 g/dl (14.0-18.0); Immature Granulocytes # (auto) 0.12 K/uL (0.00-0.02); Immature Granulocytes % (auto) 0.9 %; Lymphocytes # (auto) 1.12 K/uL (1.2-3.4); Lymphocytes % (auto) 8.4 %; Mean Corpuscular Hemoglobin 28.8 pg (25.0-34.0); Mean Corpuscular Hgb Conc 34.1 g/dL (32.0-36.0); Mean Corpuscular Volume 84.5 fL (80.0-100.0); Mean Platelet Volume 10.1 fL (9.4-12.4); Monocytes # (auto) 0.92 K/uL (0.24-0.82); Monocytes % (auto) 6.9 %; Neutrophils # (auto) 11.07 K/uL (1.4-6.5); Platelet Count 295 K/uL (130-400); RDW Coefficient of Variation 12.8 % (11.5-14.5); RDW Standard Deviation 39.5 fL (36.4-46.3); Red Blood Count 4.72 M/uL (4.63-6.08); White Blood Count 13.33 K/ul (4.8-10.8)
[2022-01-19] MEDS ORDERED: HYDROmorphone INJ 1 MG/ML SYRINGE IV STA ×2 (10:25→11:53)
[2022-01-19 10:39] LABS: Albumin Level 3.9 gm/dl (3.4-5.0); BUN Creatinine Ratio 21.7 (10-20); Bilirubin Direct 0.1 mg/dl (0-0.2); Bilirubin,Total 0.7 mg/dl (0.2-1.0); Calcium 10.3 mg/dl (8.5-10.1); Creatinine Clr Calc Pharmacy 108.9 ml/min; Est GFR (African American) 110.8 ml/min; Est GFR (Non-African American) 95.6 ml/min; Potassium 3.7 mmol/L (3.5-5.1); Total Protein 7.7 gm/dl (6.0-8.3)
[2022-01-19] MEDS ORDERED: OPTIRAY 320 100ml IV ONE (10:57)
[2022-01-19] MEDS ORDERED: cefOXitin 2,000 MG/60 ML BAG IV STA (11:10)
--- NOTE | 2022-01-19 11:14 | CT Scan Report ---
CT abd pelvis IV con only CLINICAL HISTORY: LLQ pain, constipation, vomiting TECHNIQUE: Helical axial images of the abdomen and pelvis were obtained and displayed. Automated dose lowering techniques and/or adjustment according to patient size were utilized for this exam. This e xam was performed with intravenous contrast. CT DOSE: 669.82 mGy.cm COMPARISON: None available at the time of this dictation. FINDINGS: Lower chest: No acute abnormality Liver: Unremarkable. No focal lesions are seen. Gallbladder and biliary tree: No calcified gallstones. Normal caliber wall. No intra- or extrahepatic biliary ductal dilation. Pancreas: Unremarkable, no focal lesions. Spleen: Unremarkable. Adrenals: 16 mm right adrenal nodule is seen. Kidneys and ureters: Subcentimeter hypodensities are too small to characterize. Bladder: Unremarkable. Reproductive organs: Unremarkable. Bowel: Wall thickening and fat stranding is seen in the sigmoid colon. No evidence of perforation or abscess formation is seen. There is gaseous distention of the remainder of the colon. The appendix is normal. A hiatal hernia is seen. Lymph nodes Retroperitoneal: Unremarkable. Mesenteric: Unremarkable. Pelvic: Unremarkable. Peritoneum: Fat stranding is noted about the sigmoid colon. Vessels: Atherosclerotic calcifications are seen. Abdominal wall: Bilateral fat-containing inguinal hernias are seen. Bones: Degenerative changes in the visualized spine. Right total hip arthroplasty is seen. IMPRESSION: Findings are compatible with acute diverticulitis in the sigmoid colon without evidence of perforatio n or abscess. ACT 112: Negative or not required by law. Electronically signed by: Shadi Weeks M.D. 01/19/2022 11:12 AM
[2022-01-19] MEDS ORDERED: SODIUM CHLORIDE 0.9% 1000ML 1,000 ML IV SCH (12:00)
--- NOTE | 2022-01-19 12:11 | History & Physical Report ---
Date of Service January 19, 2022 Assessment & Plan (1) Diverticulitis: Plan: - Symptom onset 5 days ago with LLQ pain, fevers, development of n/v last evening, 3 doses of PO Augmentin without improvement. - CT A/P: sigmoid diverticulitis w/ gaseous distention on remainder of colon. - NPO with Zosyn q8h. - General surgery consult ordered--NGT ordered for obstruction, no plans for surgery at this time. Patient refusing NGT at this time. - GI consulted regarding obstruction possibly requiring colonoscopy/stent placement at a later date. - Maintenance IVF - Supportive care: pain control, anti emetics ordered. (2) Benign essential hypertension: Plan: - Continue lisinopril. - Renal function stable, continue to follow on AM labs. (3) Hypercholesterolemia: Plan: - Continue atorvastatin and fenofibrate. (4) Diabetes mellitus: Plan: - Hold metformin, order Acuccheks ACHS + SSI w/o carb ratio. - A1c October 2021--> 6.6% (5) Tobacco abuse: Plan: - Smokes 1/2 PPD, declines nicotine patch at this time. Plan - admit to med/surg. - SCDs for VTE ppx. - Full Code. History of Present Illness Chief Complaint: LLQ pain with new onset vomiting last evening Primary Care Provider: Howard Lockhart MD Julio Gupta is a 61-year-old male with a past medical history significant for hypertension, hyperlipidemia, DM2, UE DVT in 2017, and tobacco use who presents today with ongoing abdominal pain and constipation. Last Thursday he had a fever at home which he took ibuprofen for which alleviated this, however the next day began experiencing abdominal pain. He had a telehealth visit with his PCP who started him on Augmentin for presumed diverticulitis, given symptoms and history of diverticula on colonoscopy. He received 3 doses of this and still has crampy abdominal pain and developed some vomiting and multiple episodes of non-bloody emesis since last evening. He has not had a bowel movement since Thursday or Thursday. He has not had any more fevers. Abdominal pain does not rad iate, is currently mild. In ED, he is hemodynamically stable, vital signs within normal limits. Labs significant for WBC 15.33, glucose 171, calcium elevated 10.3. CT A/P showed diverticulitis in sigmoid colon without perforation or abscess. Allergies Allergy/AdvReac Type Severity Reaction Status Date / Time No Known Allergies Allergy Verified 10/11/21 08:44 Home Medications Medication Instructions Recorded Confirmed Type omega-3 fatty acids 1,000 mg 1,000 mg PO BID #180 caps 12/13/19 01/27/22 Rx capsule blood-glucose meter (OneTouch #1 ea 09/20/20 01/19/22 Rx Verio Meter) lancets 33 gauge (OneTouch Delica #50 ea 09/20/20 01/19/22 Rx Lancets) blood sugar diagnostic (OneTouch #50 ea 09/21/20 01/19/22 Rx Verio test strips) fenofibrate 54 mg tablet 54 mg PO DAILY #90 tabs 04/08/21 01/27/22 Rx atorvastatin 20 mg tablet 20 mg PO DAILY #90 tabs 10/08/21 01/27/22 Rx lisinopril 10 mg tablet 10 mg PO DAILY #90 tabs 10/11/21 01/27/22 Rx metformin 500 mg tablet 500 mg PO DAILY #90 tabs 12/10/21 01/27/22 Rx amoxicillin 875 mg-potassium 1 tab PO BID 01/27/22 01/27/22 History clavulanate 125 mg tablet aspirin 81 mg tablet,delayed 81 mg PO DAILY 01/27/22 01/27/22 History release Past Med/Surg History Medical History DVT (deep venous thrombosis) Left subclavian thrombus (2016); previously on xarelto/since discontinued Elevated triglycerides with high cholesterol History of renal calculi Liver abscess 2003, drained at [facility] [place] Osteoarthritis Surgical History History of colonoscopy x2 History of tooth extraction Hx of mastoidectomy as child Hx of nephrolithotomy with removal of calculi Family History Mother Cancer, Onset Age: 70 pancreatic Diabetes Father Heart disease, Onset Age: 70 smoker Sister Breast cancer, Onset Age: 57 healthy now at age 60 Social History Smoking Status: Current every day smoker Age Started Using Tobacco: 19; packs per day: 0.5; Years Smoked: 40; Cigarettes Per Day: 10 (tobacco use x 30 years); Second Hand Exposure: No; Hx Alcohol Use: No Hx Substance Use: No Preferred Language: New Zealander Communication Ability: Effective Visual Impairment: No Limitations Hearing Ability: Normal Ophthalmology Assistant Required: No Beliefs That Will Affect Care: None marital status: Current Living Situation: Spouse current occupational status: employed 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 Feels Safe at Home: Yes Dental Care, Regularly: No Physical Activity Frequency: Does not Exercise Seatbelt Use: always Sunscreen Use: Yes Assistive Devices: None Review of Systems Review of Systems: Constitutional: No fever/chills, weakness, fatigue, myalgias, anorexia, night sweats Eyes: No diplopia, no worsening or blurred vision ENT: normal hearing, no trouble swallowing Respiratory: No cough, sputum, dyspnea at rest or on exertion Cardiovascular: No chest pain, tightness or palpitations Abdomen: crampy abdominal pain with vomiting last night; no diarrhea, however has not had a bowel movement in 5-6 days : Denies dysuria, hematuria, increased urgency/frequency, urinary retention Musculoskeletal: No joint pain, calf pain, swelling Neurologic: No weakness, numbness/tingling, or balance problems Psychiatric: No anxiety or depression Skin: No rash or itch Physical Exam Physical Exam: General: awake, alert, no apparent distress Head: Normocephalic, atraumatic ENT: PERRL, EOMI, no pharyngeal exudate, mucous membranes moist Chest: Clear to auscultation, on room air, no adventitious breath sounds Cardiac: Regular rate and rhythm, no murmur, no JVD, normal peripheral pulses, good capillary refill Abdominal: mildly TTP in LLQ without rebound or guarding; NABS x 4 quadrants, soft Extremities: Normal inspection, no peripheral edema or erythema, calfs nontender to palpation Psych: Normal mood and affect Neuro: AAO x 3, strength intact bilaterally and rated 5/5, no motor deficits, speech is clear, no peripheral sensory deficits Skin: no rash or erythema Results & Data Results & Data ([facility]) Vital Signs (Past 12 Hours) Vital Signs Temp Pulse Pulse Resp BP BP Pulse Ox 01/19/22 10:00 71 18 116/81 95 01/19/22 09:13 36.8 C 90 18 122/75 99 Laboratory Results Abnormal lab results 01/19/22 01/19/22 Range/Units 09:40 09:40 WBC 13.33 H (4.8-10.8) K/ul Hgb 13.6 L (14.0-18.0) g/dl Hct 39.9 L (40.1-51.0) % Neut # (Auto) 11.07 H (1.4-6.5) K/uL Lymph # (Auto) 1.12 L (1.2-3.4) K/uL Harding # (Auto) 0.92 H (0.24-0.82) K/uL Immature Gran # (Auto) 0.12 H (0.00-0.02) K/uL Sodium 135 L (136-145) mmol/L BUN/Creatinine Ratio 21.7 H (10-20) Glucose 171 H (70-99(Fasting)) mg/dl Calcium 10.3 H (8.5-10.1) mg/dl AST 12 L (13-39) U/L Diagnostic Findings Abdomen/Pelvis CT 01/19/22 09:25 CT abd pelvis IV con only CLINICAL HISTORY: LLQ pain, constipation, vomiting TECHNIQUE: Helical axial images of the abdomen and pelvis were obtained and displayed. Automated dose lowering techniques and/or adjustment according to patient size were utilized for this exam. This exam was performed with intravenous contrast. CT DOSE: 669.82 mGy.cm COMPARISON: None available at the time of this dictation. FINDINGS: Lower chest: No acute abnormality Liver: Unremarkable. No focal lesions are seen. Gallbladder and biliary tree: No calcified gallstones. Normal caliber wall. No intra- or extrahepatic biliary ductal dilation. Pancreas: Unremarkable, no focal lesions. Spleen: Unremarkable. Adrenals: 16 mm right adrenal nodule is seen. Kidneys and ureters: Subcentimeter hypodensities are too small to characterize. Bladder: Unremarkable. Reproductive organs: Unremarkable. Bowel: Wall thickening and fat stranding is seen in the sigmoid colon. No evidence of perforation or abscess formation is seen. There is gaseous distention of the remainder of the colon. The appendix is normal. A hiatal hernia is seen. Lymph nodes Retroperitoneal: Unremarkable. Mesenteric: Unremarkable. Pelvic: Unremarkable. Peritoneum: Fat stranding is noted about the sigmoid colon. Vessels: Atherosclerotic calcifications are seen. Abdominal wall: Bilateral fat-containing inguinal hernias are seen. Bones: Degenerative changes in the visualized spine. Right total hip arthroplasty is seen. IMPRESSION: Findings are compatible with acute diverticulitis in the sigmoid colon without evidence of perforation or abscess. ACT 112: Negative or not required by law. Electronically signed by: Shadi Weeks M.D. 01/19/2022 11:12 AM Code Status & VTE Plan Code Status Full code. Supervising Physician Co-Signing Physician Notes I personally saw and examined the patient. I verified all de paz points and agree with Cherri Moore PA-C with the following exceptions and/or additions: 61 year old male admission for abdominal pain and constipation. Failed outpatient Augmentin but did not change diet. O/E LLQ pain without guarding or rebound tenderness A/P Acute diverticulitis - NPO, IV Zosyn, Consult surgery PG Care Time/CCT Total # of Minutes Spent Total Time Spent with Patient: Total time spent is greater than 50% in coordination of care (as documented) at patient's floor/unit and/or counseling patient: Coding Level of Care Code 45474 Initial Inpt Care Lvl 2 Diagnoses Diverticulitis K57.92 Benign essential hypertension I10 Hypercholesterolemia E78.00 Diabetes mellitus E11.9 Tobacco abuse Z72.0
[2022-01-19] MEDS ORDERED: LORazepam 2 MG/1 ML VIAL IV STA (12:16)
--- NOTE | 2022-01-19 12:24 | Surgery Consultation ---
Date of Consultation January 19, 2022 Assessment & Plan (1) Diverticulitis: Patient with obstructive symptoms although: Not significantly dilated Cannot rule out neoplasm Patient will be admitted to the hospital, he has been given IV antibiotics Will need a GI evaluation with possible endoscopy at some point Will try to avoid urgent surgery as this would most likely require a temporary colostomy As the patient is unprepped and obstructed May end up needing parenteral nutrition depending on progress NG tube will help History of Present Illness History of Present Illness 61-year-old male presenting the emergency room with nausea vomiting abdominal pain and history of fever Being treated within the last week with Augmentin for suspected diverticulitis History of colonoscopy approximately [address] Rose in [place] showing diverticula Patient has not had bowel movements over 4 to 5 days with just some passage of mucus but has been able to pass gas Currently is having belching at the bedside and had some nausea and vomiting over the past 24 hours His CAT scan shows an area of sigmoid colon with obstructive findings and may show some fluid collections within the colon consistent with possible abscess, cannot rule out tumor-suspected to be severe diverticulitis with no evidence of perforation His proximal colon is not significantly distended Allergies Allergy/AdvReac Type Severity Reaction Status Date / Time No Known Allergies Allergy Verified 10/11/21 08:44 Home Medications Medication Instructions Recorded Confirmed Type omega-3 fatty acids 1,000 mg 1,000 mg PO BID #180 cap 12/13/19 10/11/21 Rx capsule blood-glucose meter (OneTouch #1 ea 09/20/20 10/11/21 Rx Verio Meter) lancets 33 gauge (OneTouch Delica #50 ea 09/20/20 10/11/21 Rx Lancets) blood sugar diagnostic (OneTouch #50 ea 09/21/20 10/11/21 Rx Verio test strips) fenofibrate 54 mg tablet 54 mg PO DAILY #90 tab 04/08/21 10/11/21 Rx atorvastatin 20 mg tablet 20 mg PO DAILY #90 tab 10/08/21 10/11/21 Rx lisinopril 10 mg tablet 10 mg PO DAILY #90 tab 10/11/21 10/11/21 Rx metformin 500 mg tablet 500 mg PO DAILY #90 tab 12/10/21 Rx amoxicillin 875 mg-potassium 1 tab PO BID #20 tab 01/17/22 01/17/22 Rx clavulanate 125 mg tablet Patient History Medical History DVT (deep venous thrombosis) Elevated triglycerides with high cholesterol History of renal calculi Liver abscess Osteoarthritis Surgical History History of colonoscopy History of tooth extraction Hx of mastoidectomy Hx of nephrolithotomy with removal of calculi Family History Mother Cancer, Onset Age: 70 pancreatic Diabetes Father Heart disease, Onset Age: 70 smoker Sister Breast cancer, Onset Age: 57 healthy now at age 60 Social History Smoking Status: Current every day smoker Age Started Using Tobacco: 19; packs per day: 0.5; Years Smoked: 40; Cigarettes Per Day: 10 (tobacco use x 30 years); Second Hand Exposure: No; Hx Alcohol Use: No Hx Substance Use: No Preferred Language: Samoan Communication Ability: Effective Visual Impairment: No Limitations Hearing Ability: Normal Concession Manager Required: No Beliefs That Will Affect Care: None marital status: Current Living Situation: Spouse current occupational status: employed 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 Feels Safe at Home: Yes Dental Care, Regularly: No Physical Activity Frequency: Does not Exercise Seatbelt Use: always Sunscreen Use: Yes Assistive Devices: Walker Review of Systems Review of Systems: All systems reviewed & are unremarkable except as noted in HPI & below Physical Exam Constitutional: well nourished; no acute distress Eyes: + anicteric sclerae Respiratory: normal respiratory effort; no respiratory distress Cardiovascular: Rate/Rhythm: regular rate Gastrointestinal (Abdomen): Inspection/Auscultation: + abdomen distended Patient with diminished bowel sounds and mild tenderness in the left lower quadrant area Musculoskeletal: Head/Neck/Chest: head atraumatic Skin: no rashes, warm and dry Neurologic: awake Psychiatric: Orientation: alert Results & Data ([facility]) Vital Signs (Past 12 Hours) Vital Signs Temp Pulse Pulse Resp BP BP Pulse Ox 01/19/22 10:00 71 18 116/81 95 01/19/22 09:13 36.8 C 90 18 122/75 99 Laboratory Results Reviewed patient's laboratories Diagnostic Findings Reviewed patient's CT scan films PG Care Time/CCT Total # of Minutes Spent Total Time Spent with Patient: Total time spent is greater than 50% in coordination of care (as documented) at patient's floor/unit and/or counseling patient: Coding Level of Care Code 67122 Inpt Consult Level 4 Diagnoses Diverticulitis K57.92
[2022-01-19] MEDS ORDERED: GLUCOSE 40% GEL 15 GM TUBE PO PRN (13:23)
[2022-01-19] MEDS ORDERED: POLYETHYLENE (MIRALAX) 17 GM PACK PO PRN (13:23)
[2022-01-19] MEDS ORDERED: DEXTROSE 50% 50 ML SYRINGE IV PRN (13:23)
[2022-01-19] MEDS ORDERED: PIPERACILLIN/TAZOBACTAM 4.5 GM in DEXTROSE 5% 100 ML IV SCH (13:23)
[2022-01-19] MEDS ORDERED: GLUCAGON FOR INJ 1 MG VIAL SQ PRN (13:23)
[2022-01-19] MEDS ORDERED: GLUCOSE 10 TAB/TUBE PO PRN (13:23)
[2022-01-19] MEDS ORDERED: ACETAMINOPHEN 325 MG TAB PO PRN (13:23)
[2022-01-19] MEDS ORDERED: CARBOHYDRATES FOR HYPOGLYCEMIA PO PRN (13:23)
[2022-01-19 13:39] LABS: Appearance Urine Clear (Clear); Bacteria Urine Automated Negative (Negative); Bilirubin Urine Negative (Negative); Blood Urine Trace (Negative); Color Urine Yellow; Glucose Urine UA Negative (Negative); Ketones Urine Negative (Negative); Leukocyte Esterase Urine Negative (Negative); Nitrite Urine Negative (Negative); Protein Urine Trace (Negative); RBC Urine Automated 0-4 /hpf (0-4); Specific Gravity Urine > 1.045 (1.000-1.030); Urobilinogen Urine Negative (Negative)
[2022-01-19] MEDS ORDERED: PIPERACILLIN/TAZOBACTAM 4.5 GM in DEXTROSE 5% 100 ML IV ONE (14:00)
[2022-01-19] MEDS ORDERED: HYDROmorphone INJ 0.5 MG/0.5 ML SYR IV PRN ×2 (14:47)
[2022-01-19] MEDS: ACETAMINOPHEN 1000 MG/100 ML IV IV PRN (15:04)
[2022-01-19] MEDS: LACTATED RINGER'S 1,000 ML IV SCH ×2 (15:04→22:27)
[2022-01-19] MEDS ORDERED: INSULIN ASPART PER UNIT SC SCH (16:30)
[2022-01-19] MEDS: PIPERACILLIN/TAZOBACTAM 3.375 GM in DEXTROSE 5% 100 ML IV SCH (20:14)
[2022-01-19] MEDS ORDERED: Nursing to Pharmacy Communication SCH (20:15)
[2022-01-19] MEDS: ONDANSETRON INJ 2 MG/ML 2 ML VIAL IV PRN (20:25)
[2022-01-19] MEDS ORDERED: MoRPHine SULFATE 4 MG/ML 1 ML CARP\\VIAL IV STA (21:58)
[2022-01-19] MEDS ORDERED: MoRPHine SULFATE 2 MG/ML CARP IV PRN (21:58)
[2022-01-19] MEDS ORDERED: MoRPHine SULFATE 4 MG/ML 1 ML CARP\\VIAL IV PRN (21:58)
[2022-01-20] MEDS: INSULIN ASPART PER UNIT SC SCH ×5 (00:08→23:59)
[2022-01-20] MEDS: ACETAMINOPHEN 1000 MG/100 ML IV IV PRN (02:08)
[2022-01-20] MEDS: ONDANSETRON INJ 2 MG/ML 2 ML VIAL IV PRN ×3 (02:30→22:30)
[2022-01-20] MEDS: PIPERACILLIN/TAZOBACTAM 3.375 GM in DEXTROSE 5% 100 ML IV SCH ×3 (03:55→19:55)
[2022-01-20] MEDS ORDERED: HYDROmorphone INJ 0.5 MG/0.5 ML SYR IV PRN ×3 (05:36→16:37)
[2022-01-20] MEDS: LACTATED RINGER'S 1,000 ML IV SCH ×2 (06:10→13:59)
--- NOTE | 2022-01-20 06:44 | Surgery Progress Note ---
Date of Service January 20, 2022 Assessment & Plan (1) Diverticulitis: Plan: Cannot rule out neoplasm but had negative colonoscopy 3 years ago Area of colon is approximately 13 cm in length-may have intramural abscesses NG tube removed, continue n.p.o. Will order PPN to avoid significant protein loss as patient has not been eating much lately Will discuss his case with colorectal surgery-Geranchoer/Ruston IV antibiotics to continue GI evaluation Admission and Anticipated Discharge Date Admission Date: January 19, 2022 Subjective Patient was some dry heaves and then had NG tube placed with normal gastric output clear fluid Minimal volume-he is gagging and has severe dry heaves and is extremely anxious secondary to this His vital signs are stable He has been passing flatus Physical Exam Physical Exam: His abdomen is soft minimally distended he has normal bowel sounds No significant upper abdominal tenderness Constitutional: well developed and well nourished; no acute distress Eyes: + anicteric sclerae Respiratory: normal respiratory effort; no respiratory distress Cardiovascular: Rate/Rhythm: regular rate Gastrointestinal (Abdomen): Percussion/Palpation: abdomen soft Musculoskeletal: Gait: normal gait Skin: no rashes, warm and dry Neurologic: awake Psychiatric: Orientation: alert Results & Data ([facility]) Vital Signs (Past 12 Hours) Vital Signs Temp Pulse Resp BP Pulse Ox 01/19/22 23:23 37.3 C 79 16 147/84 H 96 PG Care Time/CCT Total # of Minutes Spent Total Time Spent with Patient: Total time spent is greater than 50% in coordination of care (as documented) at patient's floor/unit and/or counseling patient: Coding Level of Care Code 07869 Inpt Consult Level 3 Diagnoses Diverticulitis K57.92
[2022-01-20 07:01] LABS: Basophils # (auto) 0.01 K/uL (0-0.2); Basophils % (auto) 0.1 %; Eosinophils # (auto) 0.17 K/uL (0-0.50); Eosinophils % (auto) 1.5 %; Hematocrit (blood only) 35.3 % (40.1-51.0); Hemoglobin 11.9 g/dl (14.0-18.0); Immature Granulocytes # (auto) 0.09 K/uL (0.00-0.02); Immature Granulocytes % (auto) 0.8 %; Lymphocytes # (auto) 0.39 K/uL (1.2-3.4); Lymphocytes % (auto) 3.5 %; Mean Corpuscular Hemoglobin 28.1 pg (25.0-34.0); Mean Corpuscular Hgb Conc 33.7 g/dL (32.0-36.0); Mean Corpuscular Volume 83.3 fL (80.0-100.0); Monocytes # (auto) 0.58 K/uL (0.24-0.82); Monocytes % (auto) 5.2 %; Neutrophils # (auto) 9.92 K/uL (1.4-6.5); Neutrophils % (auto) 88.9 %; Platelet Count 254 K/uL (130-400); RDW Coefficient of Variation 12.8 % (11.5-14.5); Red Blood Count 4.24 M/uL (4.63-6.08); White Blood Count 11.16 K/ul (4.8-10.8)
[2022-01-20 07:22] LABS: Albumin Globulin Ratio 1.1 (0.9-2); Albumin Level 3.5 gm/dl (3.4-5.0); BUN Creatinine Ratio 17.7 (10-20); Bilirubin,Total 0.6 mg/dl (0.2-1.0); Calcium 9.4 mg/dl (8.5-10.1); Creatinine Clr Calc Pharmacy 114.9 ml/min; Est GFR (African American) 113.1 ml/min; Est GFR (Non-African American) 97.6 ml/min; Globulin 3.1 gm/dl (2.5-4.0); Magnesium 1.7 mg/dl (1.7-2.4); Potassium 3.8 mmol/L (3.5-5.1); Total Protein 6.6 gm/dl (6.0-8.3)
[2022-01-20] MEDS ORDERED: TPN/PPN CONSULT PHARMACY PRN (08:09)
--- NOTE | 2022-01-20 08:15 | XRay Report ---
XR chest 1V portable HISTORY: NG tube insertion COMPARISON: Chest 02/14/2020. FINDINGS: Nasogastric tube terminates in the stomach. The lung apices are not entirely included on th is study. No evidence for pulmonary edema. The cardiac silhouette is top normal in size. No pleural e ffusions. No definite pneumothorax. Right basilar linear densities favor subsegmental atelectasis. IMPRESSION: Nasogastric tube terminates in the stomach. ACT 112: Negative or not required by law. Electronically signed by: Juan M Hurtado M.D. 01/20/2022 8:13 AM
[2022-01-20] MEDS ORDERED: lisinopril 10 MG TAB PO SCH (09:00)
[2022-01-20] MEDS ORDERED: ATORVASTATIN 20 MG TAB PO SCH (09:00)
[2022-01-20] MEDS ORDERED: FENOFIBRATE NANOCRYSTALLIZED 48 MG TABLET PO SCH (09:00)
--- NOTE | 2022-01-20 10:18 | Gastrointestinal Consultation ---
Date of Consultation January 20, 2022 Assessment & Plan (1) Diverticulitis: -Continue IV Zosyn -NPO. When advanced, would gradually go from liquids to a low residue diet -Will need colonoscopy in 6-8 weeks, however patient noted throughout the evaluation his was a patient of [facility]. I did inform [facility] about this consult in the event of outpatient GI needs. -General surgery following and obtaining colorectal surgery input Supervising Physician Co-Signing Physician Notes I personally evaluated the patient and agree with the findings as documented by Natali Segovia, EVANGELINA Exam: Constitutional: WD/WN, vitals as above General: EOM intact bilaterally Neck: normal visual inspection Respiratory: normal respiratory effort, lungs clear to auscultation Cardiovascular: RRR, no murmur, no edema Gastrointestinal: abdomennormal to inspection, nondistended, soft, nontender, no hepatosplenomegaly Musculoskeletal: no cyanosis, head normal to inspection Skin: no rashes, warm and dry Neurologic: moves all extremities Psychiatric: A and O x3, euthymic affect History of Present Illness Reason for Consultation: Diverticulitis with obstruction Attending Physician: Ede Albarran MD History of Present Illness Patien tis a 61 yo male with PMH of significant for hypertension, HLD, DM2, UE EVT in 2017, and tobacco use who presented to the ED with abdominal pain and constipation. He notes that his symptoms had been ongoing for over 1 week. He notes he had a telehealth with his PCP and was given Augmentin for presumed diverticulitis. He notes his last colonoscopy was in [address] Rose of [facility]. He notes that he took several doses of the outpatient oral antibiotic and unfortunately his pain worsened. He developed vomiting. He continued to struggle with constipation. He presented to the ED due to worsening pain. He did have a WBC count elevated to 15,330. CT abdomen/pelvis showed Wall thickening and fat stranding is seen in the sigmoid colon. No evidence of perforation or abscess formation is seen. There is gaseous distention of the remainder of the colon. An NG tube was placed, but eventually removed by surgery. There was concern from surgery regarding a possible corresponding obstruction vs neoplasm vs intramural abscess. Patient is on IV Zosyn at present. Patient reports some improvement of his symptoms. He notes that he has no pertinent family history. He has been NPO. Allergies Allergy/AdvReac Type Severity Reaction Status Date / Time No Known Allergies Allergy Verified 10/11/21 08:44 Home Medications Medication Instructions Recorded Confirmed Type omega-3 fatty acids 1,000 mg 1,000 mg PO BID #180 cap 12/13/19 01/19/22 Rx capsule blood-glucose meter (OneTouch #1 ea 09/20/20 01/19/22 Rx Verio Meter) lancets 33 gauge (OneTouch Delica #50 ea 09/20/20 01/19/22 Rx Lancets) blood sugar diagnostic (OneTouch #50 ea 09/21/20 01/19/22 Rx Verio test strips) fenofibrate 54 mg tablet 54 mg PO DAILY #90 tab 04/08/21 01/19/22 Rx atorvastatin 20 mg tablet 20 mg PO DAILY #90 tab 10/08/21 01/19/22 Rx lisinopril 10 mg tablet 10 mg PO DAILY #90 tab 10/11/21 01/19/22 Rx metformin 500 mg tablet 500 mg PO DAILY #90 tab 12/10/21 01/19/22 Rx amoxicillin 875 mg-potassium 1 tab PO BID #20 tab 01/17/22 01/19/22 Rx clavulanate 125 mg tablet Patient History Medical History DVT (deep venous thrombosis) Left subclavian thrombus (2016); previously on xarelto/since discontinued Elevated triglycerides with high cholesterol History of renal calculi Liver abscess 2003, drained at [facility] Osteoarthritis Surgical History History of colonoscopy x2 History of tooth extraction Hx of mastoidectomy as child Hx of nephrolithotomy with removal of calculi Family History Mother Cancer, Onset Age: 70 pancreatic Diabetes Father Heart disease, Onset Age: 70 smoker Sister Breast cancer, Onset Age: 57 healthy now at age 60 Social History Smoking Status: Current every day smoker Age Started Using Tobacco: 19; packs per day: 0.5; Years Smoked: 40; Cigarettes Per Day: 10 (tobacco use x 30 years); Second Hand Exposure: No; Hx Alcohol Use: No Hx Substance Use: No Preferred Language: Turkish Communication Ability: Effective Visual Impairment: No Limitations Hearing Ability: Normal Guest Service Manager Required: No Beliefs That Will Affect Care: None marital status: Current Living Situation: Spouse current occupational status: employed 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 Feels Safe at Home: Yes Dental Care, Regularly: No Physical Activity Frequency: Does not Exercise Seatbelt Use: always Sunscreen Use: Yes Assistive Devices: Glasses Review of Systems Constitutional: no fever and no chills Respiratory: no cough and no dyspnea Cardiovascular: no chest pain Gastrointestinal: + abdominal pain, + change in bowel habits and + constipation passing gas, not moving bowels Musculoskeletal: no problem reported Psychiatric: no problem reported Hematologic / Lymphatic: no unexplained weight loss Physical Exam Constitutional: well developed Respiratory: normal respiratory effort Cardiovascular: Rate/Rhythm: regular rate Gastrointestinal (Abdomen): Inspection/Auscultation: + abdomen distended and + hypoactive bowel sounds Percussion/Palpation: + abdomen tender and abdomen soft Musculoskeletal: Head/Neck/Chest: normocephalic Psychiatric: Orientation: alert and oriented x 3 Results & Data ([facility]) Vital Signs (Past 12 Hours) Vital Signs Temp Pulse Resp BP Pulse Ox 01/20/22 07:29 37 C 74 16 132/85 96 01/19/22 23:23 37.3 C 79 16 147/84 H 96 PG Care Time/CCT Total # of Minutes Spent Total Time Spent with Patient: Total time spent is greater than 50% in coordination of care (as documented) at patient's floor/unit and/or counseling patient: Coding Level of Care Code 86982 Inpt Consult Level 4 Diagnoses Diverticulitis K57.92
--- NOTE | 2022-01-20 10:22 | Hospitalist Progress Note ---
Date of Service January 20, 2022 Assessment & Plan (1) Diverticulitis: Plan: - Symptom onset 5 days ago with LLQ pain, fevers, development of n/v last evening, 3 doses of PO Augmentin without improvement. - CT A/P: sigmoid diverticulitis w/ gaseous distention on remainder of colon. - NPO with Zosyn q8h. - General surgery consult ordered--NGT ordered for obstruction but pt refused - GI consulted-recommend f/u colo in 6-8 weeks by his established building service worker (follows with Jorge) - Maintenance IVF - Supportive care with IV pain control, anti emetics ordered. - GS ordered PPN, not entirely convinced that it is warranted at this time but as it has already been ordered, will leave for now - May require surgical intervention as there is concern for possible intramural abscess, case to be d/w colorectal surgery, will await further recommendations to determine course of treatment (2) Benign essential hypertension: Plan: - BP meds on hold d/t NPO status (3) Hypercholesterolemia: Plan: - Cholesterol meds on hold d/t NPO status (4) Diabetes mellitus: Plan: - Hold metformin, order Accuccheks q6h (d/t NPO status) + SSI for correction - A1c October 2021--> 6.6% (5) Tobacco abuse: Plan: - Smokes 1/2 PPD, declines nicotine patch at this time. Plan: Interventions as outlined above. Follow up labs in AM. Await further recommendations by colorectal surgery. Appreciate assistance of GS and GI. Plan to be d/w Dr. Cheli Albarran, further orders as warranted. Admission and Anticipated Discharge Date Admission Date: January 19, 2022 Subjective Patient seen on daily rounds this morning. He was hospitalized with first occurrence of acute sigmoid diverticulitis. He reports that he feels better compared to yesterday with less pain in his LLQ. Some nausea and no vomiting. Denies fever, chills. He continues to pass flatus. Is not passing BRBPR. He has been seen by GS who has concerns for possible adjacent abscess and has initiated PPN with plans to discuss case with colorectal surgery. He has not yet been seen by GI. Review of Systems Review of Systems: All systems reviewed and are unremarkable except as noted in HPI and below. Denies fever, chills, fatigue, headache, nasal congestion, sore throat, cough, chest pain, shortness of breath, palpitations, orthopnea, PND, constipation, dysuria, hematuria, frequency, back pain, joint pain or swelling, easy bruising or bleeding, skin lesions or rashes. Physical Exam Physical Exam: GENERAL: 61 yo Well-developed, well-nourished WM. NAD. LUNGS: Clear to auscultation bilaterally. No W/R/R. CARDIOVASCULAR: Regular rate and rhythm. ABDOMEN: Soft, non-distended. BS normoactive x 4 quad. No guarding or rigidity. Slight tenderness to deep palpation of LLQ. EXTREMITIES: No edema. Non-tender. Peripheral pulses +2/4. NEUROLOGIC: A&O x3. PSYCHIATRIC: Cooperative. Appropriate mood and affect. SKIN: Warm, dry, intact. No rashes or lesions. Results & Data Results & Data ([facility]) Vital Signs (Past 12 Hours) Vital Signs Temp Pulse Resp BP Pulse Ox 01/20/22 07:29 37 C 74 16 132/85 96 01/19/22 23:23 37.3 C 79 16 147/84 H 96 Laboratory Results 01/20/22 06:49 01/20/22 06:49 PG Care Time/CCT Total # of Minutes Spent Total Time Spent with Patient: Total time spent is greater than 50% in coordination of care (as documented) at patient's floor/unit and/or counseling patient: Coding Level of Care Code 47401 Subseq Hosp Care Lvl 2 Diagnoses Diverticulitis K57.92 Benign essential hypertension I10 Hypercholesterolemia E78.00 Diabetes mellitus E11.9 Tobacco abuse Z72.0
--- NOTE | 2022-01-20 12:17 | Pharmacy Report ---
Pharmacist Stroke Counseling - Date of Service January 20, 2022 - Scope: Pharmacy has been consulted to provide medication discharge counseling for this patient admitted with transient ischemic attack as per the Pharmacist Discharge Counseling for Stroke Patients Protocol. - Medications on Discharge: New Rx's Medication Instructions Recorded omega-3 fatty acids 1,000 mg 1,000 mg PO BID #180 cap 12/13/19 capsule blood-glucose meter (OneTouch #1 ea 09/20/20 Verio Meter) lancets 33 gauge (OneTouch Delica #50 ea 09/20/20 Lancets) blood sugar diagnostic (OneTouch #50 ea 09/21/20 Verio test strips) fenofibrate 54 mg tablet 54 mg PO DAILY #90 tab 04/08/21 atorvastatin 20 mg tablet 20 mg PO DAILY #90 tab 10/08/21 lisinopril 10 mg tablet 10 mg PO DAILY #90 tab 10/11/21 metformin 500 mg tablet 500 mg PO DAILY #90 tab 12/10/21 amoxicillin 875 mg-potassium 1 tab PO BID #20 tab 01/17/22 clavulanate 125 mg tablet - Action: The above medications, specifically ones for stroke treatment/prophylaxis, have been reviewed in detail with the patient and patient dental sales representative prior to discharge. This includes indication, common adverse reactions, drug interactions, and medication administration. Medication counseling has been employed using the teach-back method to ensure understanding. - Outcome: The patient and patient dental sales representative have demonstrated understanding of the medications. Additional comments: -no questions Thank you for allowing pharmacy to be involved in the care of this patient. Please call [phone] with any additional questions
[2022-01-20] MEDS ORDERED: DEXTROSE 10% 1,000 ML IV PRN (13:04)
--- NOTE | 2022-01-20 13:10 | Pharmacy Report ---
Pharmacy PN Initial Consult - Date of Service January 20, 2022 - Scope Pharmacy has been consulted to manage parenteral nutrition orders and order appropriate labs. As part of the Nutrition Support Team guidelines, pharmacy will work in conjunction with dietary when determining the patients caloric needs. - Subjective The patient is a 61 year old M admitted on 01/19/22 12:16 for Constipation. Patient is to receive parenteral nutrition for prolonged NPO status. Pertinent PMH: n/a - Objective Height: 5 ft 11 in Weight: 91.2 kg Diet: NPO Vascular Access:: peripheral Intake & Output (Last 24Hrs): Intake & Output 01/18/22 01/19/22 01/20/22 01/21/22 06:59 06:59 06:59 06:59 Intake Total 3542.500 / 3542.500 115 / 115 Output Total 750 / 750 Balance 2792.500 / 2792.500 115 / 115 Weight 91.2 kg Laboratory Data (Last 24 Hrs):: 01/20/22 01/20/22 01/20/22 06:49 06:49 06:49 Sodium 137 Potassium 3.8 Chloride 105 Carbon Dioxide 23 BUN 14 Creatinine 0.79 Glucose 139 H Calcium 9.4 Phosphorus 3.1 Magnesium 1.7 Total Bilirubin 0.6 AST 10 L ALT 10 Alkaline Phosphatase 47 Albumin 3.5 Triglycerides 146 Nutrition Assessment:: Please refer to the Notes section of the EMR for the most recent testboard operator note. - Plan For day 1 of PN administration, the following will be ordered: Macronutrients Amino acids 71 grams/day Dextrose 84 grams/day Lipids 50 grams/day Micronutrients Combined electrolytes -- mL - contains 35 mEq Na, 20 meq K, 4.5 mEq Ca, 5 mEq Mg, 35 mEq Cl, 29.5 mEq acetate per 20 mL Sodium phosphate -- MMol Sodium chloride 70 mEq Sodium acetate 70 mEq Potassium phosphate 21 mMol Potassium chloride 20 mEq Potassium acetate -- mEq Magnesium sulfate 8.12 mEq Calcium gluconate 4.6 mEq Multivitamins 10 mL Trace Elements 10 mL Additional additives: thiamine 100 mg and folic acid 1 mg Total volume 1784 mL to be infused over 24 hrs will provide 1070 kcal/day Final osmolarity 833 mOsm/L (maximum for PPN is 900 mOsm/L) Labs to be ordered per PN order protocol Pharmacy will follow and adjust parenteral nutrition orders on a daily basis. Thank you.
--- NOTE | 2022-01-20 14:03 | XRay Report ---
XR KUB/Abdomen 1 view CLINICAL HISTORY: r/o obstruction TECHNIQUE: 1 view of the abdomen was obtained. Comparison: Comparison is made to CT abdomen pelvis 01/19/2022 FINDINGS: Lung bases are unremarkable. Degenerative changes are seen in the visualized skeleton. There is a tot al right hip arthroplasty. The bowel gas pattern is nonobstructive. Gaseous distention of multiple sm all bowel loops are seen. No evidence of pneumoperitoneum. IMPRESSION: No evidence of bowel obstruction. Prominent large bowel gas is seen. No evidence of pneumoperitoneum to suggest perforation in this patient with known diverticulitis. ACT 112: Negative or not required by law. Electronically signed by: Shadi Weeks M.D. 01/20/2022 2:01 PM
[2022-01-20] MEDS ORDERED: PERIPHERAL TPN IV SCH (16:00)
[2022-01-20] MEDS ORDERED: AMINO ACIDS 4.25% IV SCH (16:00)
[2022-01-20] MEDS ORDERED: CLINOLIPID 20% IV FAT EMULSION 250 ML IV SCH (16:00)
[2022-01-20] MEDS ORDERED: D5W IV SCH (16:00)
[2022-01-20] MEDS ORDERED: ACETAMINOPHEN 1000 MG/100 ML IV IV PRN (16:37)
[2022-01-20] MEDS ORDERED: HYDROmorphone INJ 1 MG/ML SYRINGE IV PRN (16:37)
[2022-01-20] MEDS: PERIPHERAL TPN IV SCH (17:09)
[2022-01-20] MEDS: D5W IV SCH (17:09)
[2022-01-20] MEDS: AMINO ACIDS 4.25% IV SCH (17:09)
[2022-01-20] MEDS ORDERED: STOP CLINOLIPID SCH (22:00)
[2022-01-21] MEDS: PIPERACILLIN/TAZOBACTAM 3.375 GM in DEXTROSE 5% 100 ML IV SCH ×3 (03:44→20:06)
[2022-01-21] MEDS: PERIPHERAL TPN IV SCH ×2 (03:45→16:51)
[2022-01-21] MEDS: D5W IV SCH ×2 (03:45→16:51)
[2022-01-21] MEDS: AMINO ACIDS 4.25% IV SCH ×2 (03:45→16:51)
[2022-01-21 05:33] LABS: Basophils # (auto) 0.03 K/uL (0-0.2); Basophils % (auto) 0.4 %; Eosinophils # (auto) 0.36 K/uL (0-0.50); Eosinophils % (auto) 4.5 %; Hematocrit (blood only) 33.4 % (40.1-51.0); Hemoglobin 11.2 g/dl (14.0-18.0); Immature Granulocytes # (auto) 0.22 K/uL (0.00-0.02); Immature Granulocytes % (auto) 2.8 %; Lymphocytes # (auto) 0.42 K/uL (1.2-3.4); Lymphocytes % (auto) 5.3 %; Mean Corpuscular Hemoglobin 28.4 pg (25.0-34.0); Mean Corpuscular Hgb Conc 33.5 g/dL (32.0-36.0); Mean Corpuscular Volume 84.6 fL (80.0-100.0); Mean Platelet Volume 10.2 fL (9.4-12.4); Monocytes # (auto) 0.63 K/uL (0.24-0.82); Monocytes % (auto) 7.9 %; Neutrophils % (auto) 79.1 %; Platelet Count 260 K/uL (130-400); RDW Coefficient of Variation 12.4 % (11.5-14.5); RDW Standard Deviation 38.2 fL (36.4-46.3); Red Blood Count 3.95 M/uL (4.63-6.08); White Blood Count 7.96 K/ul (4.8-10.8)
[2022-01-21] MEDS: INSULIN ASPART PER UNIT SC SCH ×3 (06:08→18:19)
[2022-01-21 06:17] LABS: BUN Creatinine Ratio 22.2 (10-20); Calcium 8.9 mg/dl (8.5-10.1); Creatinine Clr Calc Pharmacy 112.7 ml/min; Est GFR (Non-African American) 96.6 ml/min; Magnesium 1.9 mg/dl (1.7-2.4); Potassium 3.7 mmol/L (3.5-5.1)
--- NOTE | 2022-01-21 07:11 | Surgery Progress Note ---
Date of Service January 21, 2022 Assessment & Plan (1) Diverticulitis: Plan: Severe diverticulitis of the sigmoid colon Likely intramural abscess Stable/improving-had bowel movement Ice only today -will be very slow to advance diet Reviewed his case with my partner and also Dr. Bowens /colorectal surgery at [facility] We feel we should continue IV antibiotics and limited p.o.-likely delayed operation 6 to 8 weeks or longer With severe disease may need home IV antibiotics I have ordered an ID consult, will hold off on PICC line until we have their thoughts Patient has had a PICC line before for liver abscesses Patient is very satisfied with the plan and have discussed his case with his Admission and Anticipated Discharge Date Admission Date: January 19, 2022 Subjective Patient awake and alert Much improved affect-no abdominal pain Significant bowel movement last night loose Feeling better Vital signs stable Review of Systems Review of Systems: All systems reviewed & are unremarkable except as noted in HPI & below Physical Exam Physical Exam: His abdomen is soft minimally distended he has normal bowel sounds No significant upper abdominal tenderness Constitutional: well developed and well nourished; no acute distress Eyes: + anicteric sclerae Respiratory: normal respiratory effort; no respiratory distress Cardiovascular: Rate/Rhythm: regular rate Gastrointestinal (Abdomen): Percussion/Palpation: abdomen soft Musculoskeletal: Gait: normal gait Skin: no rashes, warm and dry Neurologic: awake Psychiatric: Orientation: alert Results & Data ([facility]) Vital Signs (Past 12 Hours) Vital Signs Temp Pulse Resp BP Pulse Ox 01/20/22 22:29 36.9 C 80 16 139/75 95 PG Care Time/CCT Total # of Minutes Spent Total Time Spent with Patient: Total time spent is greater than 50% in coordination of care (as documented) at patient's floor/unit and/or counseling patient: Coding Level of Care Code 36165 Inpt Consult Level 3 Diagnoses Diverticulitis K57.92
[2022-01-21] MEDS ORDERED: SODIUM PHOSPHATE 15 MMOL in DEXTROSE 5% 250 ML IV ONE (09:15)
--- NOTE | 2022-01-21 14:27 | Hospitalist Progress Note ---
Date of Service January 21, 2022 Assessment & Plan (1) Diverticulitis: Plan: - Symptom onset 5 days ago with LLQ pain, fevers, development of n/v last evening, 3 doses of PO Augmentin without improvement. - CT A/P: sigmoid diverticulitis w/ gaseous distention on remainder of colon. - NPO with Zosyn q8h. - General surgery consult ordered--NGT ordered for obstruction but pt refused - GI consulted-recommend f/u colo in 6-8 weeks by his established banking management consulting manager (follows with [facility]) - Supportive care with IV pain control, anti emetics ordered. - General surgery ordered PPN, pharmacy managing - May require surgical intervention as there is concern for possible intramural abscess, will repeat CT a/p with IV contrast to ensure that this has not increased in size thus requiring IR drainage; although based on his clinical improvement, I am hopeful that it is stable or smaller and will not need any intervention - GS advanced diet to ice chips, if tolerates today and CT a/p, could consider advancing to clear liquids tomorrow - GS consulted ID to determine need for home IV antibiotics, this consult is pending (2) Benign essential hypertension: Plan: - BP meds on hold d/t NPO status - Normotensive (3) Hypercholesterolemia: Plan: - Cholesterol meds on hold d/t NPO status (4) Diabetes mellitus: Plan: - Hold metformin, order Accuccheks q6h (d/t NPO status) + SSI for correction - A1c October 2021--> 6.6% (5) Tobacco abuse: Plan: - Smokes 1/2 PPD, declines nicotine patch at this time. Plan: Interventions as outlined above. WBC has normalized, afebrile. Clinically responding favorably to conservative treatment. Repeat CT a/p as above. Ice chips for today. Await ID input. Plan d/w Dr. Klein. Admission and Anticipated Discharge Date Admission Date: January 19, 2022 Supervising Physician Co-Signing Physician Notes PA Supervision Note: I did not personally see or examine the patient today, but I verified all de paz points of GEORGE Alatorre's assessment and plan with the following exceptions/additions: None Subjective Patient seen on daily rounds this morning. He reports feeling better today. Denies abd pain, nausea, vomiting, fever/chills. He had multiple bowel movements yesterday and continues to pass flatus. No melena or hematochezia. His diet has apparently been advanced to allow for ice chips. Review of Systems Review of Systems: All systems reviewed and are unremarkable except as noted in HPI and below. Denies fever, chills, fatigue, headache, nasal congestion, sore throat, cough, chest pain, shortness of breath, palpitations, orthopnea, PND, constipation, dysuria, hematuria, frequency, back pain, joint pain or swelling, easy bruising or bleeding, skin lesions or rashes. Physical Exam Physical Exam: GENERAL: 61 yo Well-developed, well-nourished WM. NAD. LUNGS: Clear to auscultation bilaterally. No W/R/R. CARDIOVASCULAR: Regular rate and rhythm. ABDOMEN: Soft, non-distended, non-tender. BS normoactive x 4 quad. No guarding or rigidity. EXTREMITIES: No edema. Non-tender. Peripheral pulses +2/4. NEUROLOGIC: A&O x3. PSYCHIATRIC: Cooperative. Appropriate mood and affect. SKIN: Warm, dry, intact. No rashes or lesions. Results & Data Results & Data ([facility]) Vital Signs (Past 12 Hours) Vital Signs Temp Pulse Resp BP Pulse Ox 01/21/22 07:03 36.8 C 63 20 122/78 94 Laboratory Results 01/21/22 05:05 01/21/22 05:05 PG Care Time/CCT Total # of Minutes Spent Total Time Spent with Patient: Total time spent is greater than 50% in coordination of care (as documented) at patient's floor/unit and/or counseling patient: Coding Level of Care Code 90531 Subseq Hosp Care Lvl 2 Diagnoses Diverticulitis K57.92 Benign essential hypertension I10 Hypercholesterolemia E78.00 Diabetes mellitus E11.9 Tobacco abuse Z72.0
[2022-01-21] MEDS ORDERED: OPTIRAY 320 100ml IV ONE (15:43)
[2022-01-21] MEDS ORDERED: CLINOLIPID 20% IV FAT EMULSION 250 ML IV SCH (16:00)
--- NOTE | 2022-01-21 16:14 | CT Scan Report ---
CT abd pelvis IV con only CLINICAL HISTORY: f/u sigmoid diverticulitis/abscess COMPARISON STUDY: 01/19/2022 CT DOSE: 993.21 mGycm TECHNIQUE: Standard CT of the Abdomen and Pelvis was performed with IV contrast. A dose lowering william hnique was utilized adhering to the principles of ALARA. Contrast Volume: Optiray 320, 94 ml. The patient did not receive oral contrast. FINDINGS: Lung base: The lung bases are clear. Abdominal cavity: There is no evidence for abdominal mass, adenopathy or ascites. Bilateral inguinal hernias are present containing peritoneal fat. Liver: There is homogeneous attenuation of the liver parenchyma. There is no evidence for enhancing m ass lesion. Spleen: There is homogeneous attenuation of the splenic parenchyma. There is no enhancing mass lesion . Pancreas: There is homogeneous attenuation of the pancreatic parenchyma. There is no evidence for mas s lesion or peripancreatic fluid collection. Gall Bladder: The gallbladder is well distended with no evidence for intraluminal calculi, wall thick ening or pericholecystic edema. Adrenal glands: The adrenal glands are normal in size and attenuation. There is a 16 mm low-attenuati on right adrenal nodule again seen most characteristic of an adenoma. Kidneys: There is homogeneous attenuation of the renal parenchyma bilaterally. There is again evidenc e for 2 contiguous calculi within the lower pole of the left kidney measuring approximately 7 to 8 mm . No other renal calculi identified. There is no evidence for hydronephrosis bilaterally. There is no evidence for enhancing mass. Bowel: There is again a small hiatal hernia. Extensive acute diverticulitis is again seen involving t he sigmoid colon with mucosal thickening and perisigmoidal inflammatory changes present. Findings are not significantly changed from previous study with no perforation or abscess. However, there is now mild to moderately dilated loops of small bowel throughout the abdomen and pelv is and fluid-filled loops of colon as well. The findings are most characteristic of interval developm ent of an ileus. There is no evidence for free air. Bladder: The bladder is distended with no evidence for focal mass, calculus or diverticulum. : There is no evidence for pelvic mass or adenopathy. There is no evidence for pelvic ascites. The prostate is mildly enlarged. Vasculature: There is no evidence for aneurysmal dilatation of the abdominal aorta. Osseous structures: There is no acute osseous pathology. The patient is status post right hip replace ment. IMPRESSION: 1. Compared to previous examination, there is again extensive sigmoid diverticulitis which is not sig nificantly changed. No interval perforation or abscess. 2. However, there has been interval development of dilatation of both the large and small bowel with fluid levels present most characteristic of interval development of an ileus. 3. Small hiatal hernia is again seen. 4. Nonobstructing left renal calculi are again seen. 5. Additional nonacute findings are delineated above. ACT 112: Negative or not required by law. Electronically signed by: Gal Veliz M.D. 01/21/2022 4:12 PM
[2022-01-21] MEDS ORDERED: STOP CLINOLIPID SCH (22:00)
[2022-01-22] MEDS: INSULIN ASPART PER UNIT SC SCH ×3 (00:35→12:15)
[2022-01-22] MEDS: PIPERACILLIN/TAZOBACTAM 3.375 GM in DEXTROSE 5% 100 ML IV SCH ×2 (04:00→11:28)
[2022-01-22] MEDS: ONDANSETRON INJ 2 MG/ML 2 ML VIAL IV PRN (04:00)
[2022-01-22] MEDS: AMINO ACIDS 4.25% IV SCH (05:21)
[2022-01-22] MEDS: PERIPHERAL TPN IV SCH (05:21)
[2022-01-22] MEDS: D5W IV SCH (05:21)
--- NOTE | 2022-01-22 07:31 | Surgery Progress Note ---
Date of Service January 22, 2022 Assessment & Plan (1) Diverticulitis: Plan: Patient underwent CT scan showing some slightly more dilated colon and small bowel- His sigmoid diverticulitis did not change much but there is no worsening Patient has not had any vomiting-he does not feel he is going to tolerate an NG tube if necessary ID consult-report is pending but a note says he could be transition to p.o. antibiotics at some point He is currently on PPN I do have some concern with his mildly dilated colon and small bowel He does not need an urgent operation at this time For now we will continue with the current situation essentially n.p.o. except ice and PPN We will discussed with the medical team Admission and Anticipated Discharge Date Admission Date: January 19, 2022 Subjective Vital signs are stable No abdominal pain Having some belching and passing flatus See assessment and plan Review of Systems Review of Systems: All systems reviewed and are unremarkable except as noted in HPI and below. Denies fever, chills, fatigue, headache, nasal congestion, sore throat, cough, chest pain, shortness of breath, palpitations, orthopnea, PND, constipation, dysuria, hematuria, frequency, back pain, joint pain or swelling, easy bruising or bleeding, skin lesions or rashes. Physical Exam Physical Exam: He does have bowel sounds but does seem a little more distended Patient is in no distress Eyes: + anicteric sclerae Respiratory: normal respiratory effort; no respiratory distress Cardiovascular: Rate/Rhythm: regular rate Musculoskeletal: Head/Neck/Chest: head atraumatic Skin: no rashes, warm and dry Neurologic: awake Psychiatric: Orientation: alert Results & Data ([facility]) Vital Signs (Past 12 Hours) Vital Signs Temp Pulse Resp BP Pulse Ox O2 Del Method 01/21/22 23:58 36.9 C 75 16 143/89 H 95 Room Air Diagnostic Findings I did review his CAT scan PG Care Time/CCT Total # of Minutes Spent Total Time Spent with Patient: Total time spent is greater than 50% in coordination of care (as documented) at patient's floor/unit and/or counseling patient: Coding Level of Care Code 14985 Subseq Hosp Care Lvl 3 Diagnoses Diverticulitis K57.92
[2022-01-22 08:20] LABS: Basophils # (auto) 0.02 K/uL (0-0.2); Basophils % (auto) 0.2 %; Eosinophils # (auto) 0.35 K/uL (0-0.50); Eosinophils % (auto) 4.3 %; Hematocrit (blood only) 37.4 % (40.1-51.0); Hemoglobin 12.5 g/dl (14.0-18.0); Immature Granulocytes # (auto) 0.37 K/uL (0.00-0.02); Immature Granulocytes % (auto) 4.6 %; Lymphocytes % (auto) 6.2 %; Mean Corpuscular Hemoglobin 28.5 pg (25.0-34.0); Mean Corpuscular Hgb Conc 33.4 g/dL (32.0-36.0); Mean Corpuscular Volume 85.4 fL (80.0-100.0); Mean Platelet Volume 10.2 fL (9.4-12.4); Monocytes # (auto) 0.75 K/uL (0.24-0.82); Monocytes % (auto) 9.2 %; Neutrophils # (auto) 6.12 K/uL (1.4-6.5); Neutrophils % (auto) 75.5 %; Platelet Count 268 K/uL (130-400); RDW Coefficient of Variation 12.8 % (11.5-14.5); RDW Standard Deviation 39.7 fL (36.4-46.3); Red Blood Count 4.38 M/uL (4.63-6.08); White Blood Count 8.11 K/ul (4.8-10.8)
[2022-01-22 08:42] LABS: BUN Creatinine Ratio 25.9 (10-20); Creatinine Clr Calc Pharmacy 112.9 ml/min; Est GFR (Non-African American) 96.6 ml/min; Phosphorus 2.9 mg/dl (2.5-4.9); Potassium 3.9 mmol/L (3.5-5.1)
--- NOTE | 2022-01-22 14:57 | Hospitalist Progress Note ---
Date of Service January 22, 2022 Assessment & Plan (1) Diverticulitis: Plan: - Symptom onset 5 days ago with LLQ pain, fevers, development of n/v last evening, 3 doses of PO Augmentin without improvement. - CT A/P: sigmoid diverticulitis w/ gaseous distention on remainder of colon. - NPO with Zosyn q8h. - General surgery consult ordered--NGT ordered for obstruction but pt refused - GI consulted-recommend f/u colo in 6-8 weeks by his established motor racer (follows with [facility]) - Supportive care with IV pain control, anti emetics ordered. - General surgery ordered PPN, pharmacy managing - May require surgical intervention as there is concern for possible intramural abscess, repeat CT a/p done 01/21, stable findings ?ileus but had a large BM following scan - GS advanced diet to ice chips, tolerating thus far - GS consulted ID to determine need for home IV antibiotics, recommended advancing diet and sending home with oral abx - Dr. Cast continues to be concerned that pt may require surgical intervention during this hospitalization, has recommended transfer to tertiary center for colorectal surgery to manage. Accepted to [facility], waiting for bed. (2) Benign essential hypertension: Plan: - BP meds on hold d/t NPO status - Normotensive (3) Hypercholesterolemia: Plan: - Cholesterol meds on hold d/t NPO status (4) Diabetes mellitus: Plan: - Hold metformin, order Accuccheks q6h (d/t NPO status) + SSI for correction - A1c October 2021--> 6.6% (5) Tobacco abuse: Plan: - Smokes 1/2 PPD, declines nicotine patch at this time. Plan As outlined above. He remains hemodynamically stable. Showing favorable clinical response to conservative treatment. Repeat labs ordered for AM. Accepted to [facility], awaiting bed. He would be acceptable for ground BLS transport once a bed has been received. I have discussed this case with Dr. Cast as well as attending, Dr. Klein. Admission and Anticipated Discharge Date Admission Date: January 19, 2022 Supervising Physician Co-Signing Physician Notes PA Supervision Note: I personally saw and examined the patient. I verified all de paz points and agree with GEORGE Alatorre with the following exceptions and/or additions: none Subjective Patient was seen on daily rounds today. He remains hospitalized for acute sigmoid diverticulitis on IV antibiotics and PPN. He had a repeat CT a/p done yesterday which demonstrated stability in the appearance of his colon but did have some findings c/f ileus. Pt notes that just following the scan, he had a large bowel movement. He had a bowel movement about an hour prior to my arrival this morning. He continues to denies abd pain, n/v. He has no fever or chills and his wbc count has normalized. He denies chest pain or dyspnea. Review of Systems Review of Systems: All systems reviewed and are unremarkable except as noted in HPI and below. Denies fever, chills, fatigue, headache, nasal congestion, sore throat, cough, chest pain, shortness of breath, palpitations, orthopnea, PND, abd pain, n/v/d, constipation, dysuria, hematuria, frequency, back pain, joint pain or swelling, easy bruising or bleeding, skin lesions or rashes. Physical Exam Physical Exam: GENERAL: 61 yo Well-developed, well-nourished WM. NAD. LUNGS: Clear to auscultation bilaterally. No W/R/R. CARDIOVASCULAR: Regular rate and rhythm. ABDOMEN: Soft, non-distended, non-tender. BS normoactive x 4 quad. No guarding or rigidity. EXTREMITIES: No edema. Non-tender. Peripheral pulses +2/4. NEUROLOGIC: A&O x3. PSYCHIATRIC: Cooperative. Appropriate mood and affect. SKIN: Warm, dry, intact. No rashes or lesions. Results & Data Results & Data ([facility]) Vital Signs (Past 12 Hours) Vital Signs Temp Pulse Resp BP Pulse Ox O2 Del Method 01/22/22 14:46 36.8 C 70 16 133/84 97 Room Air 01/22/22 07:41 36.8 C 61 16 126/76 92 Room Air Laboratory Results 01/22/22 07:30 01/22/22 07:30 Diagnostic Findings Abdomen/Pelvis CT 01/21/22 14:55 CT abd pelvis IV con only CLINICAL HISTORY: f/u sigmoid diverticulitis/abscess COMPARISON STUDY: 01/19/2022 CT DOSE: 993.21 mGycm TECHNIQUE: Standard CT of the Abdomen and Pelvis was performed with IV contrast. A dose lowering technique was utilized adhering to the principles of ALARA. Contrast Volume: Optiray 320, 94 ml. The patient did not receive oral contrast. FINDINGS: Lung base: The lung bases are clear. Abdominal cavity: There is no evidence for abdominal mass, adenopathy or ascites. Bilateral inguinal hernias are present containing peritoneal fat. Liver: There is homogeneous attenuation of the liver parenchyma. There is no evidence for enhancing mass lesion. Spleen: There is homogeneous attenuation of the splenic parenchyma. There is no enhancing mass lesion. Pancreas: There is homogeneous attenuation of the pancreatic parenchyma. There i s no evidence for mass lesion or peripancreatic fluid collection. Gall Bladder: The gallbladder is well distended with no evidence for intraluminal calculi, wall thickening or pericholecystic edema. Adrenal glands: The adrenal glands are normal in size and attenuation. There is a 16 mm low-attenuation right adrenal nodule again seen most characteristic of an adenoma. Kidneys: There is homogeneous attenuation of the renal parenchyma bilaterally. There is again evidence for 2 contiguous calculi within the lower pole of the left kidney measuring approximately 7 to 8 mm. No other renal calculi identified. There is no evidence for hydronephrosis bilaterally. There is no evidence for enhancing mass. Bowel: There is again a small hiatal hernia. Extensive acute diverticulitis is again seen involving the sigmoid colon with mucosal thickening and perisigmoidal inflammatory changes present. Findings are not significantly changed from previous study with no perforation or abscess. However, there is now mild to moderately dilated loops of small bowel throughout the abdomen and pelvis and fluid-filled loops of colon as well. The findings are most characteristic of interval development of an ileus. There is no evidence for free air. Bladder: The bladder is distended with no evidence for focal mass, calculus or diverticulum. : There is no evidence for pelvic mass or adenopathy. There is no evidence for pelvic ascites. The prostate is mildly enlarged. Vasculature: There is no evidence for aneurysmal dilatation of the abdominal aorta. Osseous structures: There is no acute osseous pathology. The patient is status post right hip replacement. IMPRESSION: 1. Compared to previous examination, there is again extensive sigmoid diverticulitis which is not significantly changed. No interval perforation or abscess. 2. However, there has been interval development of dilatation of both the large and small bowel with fluid levels present most characteristic of interval dev elopment of an ileus. 3. Small hiatal hernia is again seen. 4. Nonobstructing left renal calculi are again seen. 5. Additional nonacute findings are delineated above. ACT 112: Negative or not required by law. Electronically signed by: Gal Veliz M.D. 01/21/2022 4:12 PM PG Care Time/CCT Total # of Minutes Spent Total Time Spent with Patient: Total time spent is greater than 50% in coordination of care (as documented) at patient's floor/unit and/or counseling patient: Coding Level of Care Code 24236 Subseq Hosp Care Lvl 2 Diagnoses Diverticulitis K57.92 Benign essential hypertension I10 Hypercholesterolemia E78.00 Diabetes mellitus E11.9 Tobacco abuse Z72.0
--- NOTE | 2022-01-22 14:59 | Pharmacy Report ---
PHA: Parenteral Nutrition Con - Date of Service January 22, 2022 - Scope Pharmacy was consulted to manage parenteral nutrition orders for this patient. - Subjective The patient is currently on day [#3] of [peripheral] parenteral nutrition - Objective Height: 5 ft 11 in Weight: 92.8 kg Diet: NPO Intake & Output (24hrs):: Intake & Output 01/20/22 01/21/22 01/22/22 01/23/22 06:59 06:59 06:59 06:59 Intake Total 3542.500 / 3542.500 2721.250 / 2721.250 2637 / 2637 115 / 115 Output Total 750 / 750 701 / 701 850 / 850 Balance 2792.500 / 2792.500 2020.250 / 2020.250 1787 / 1787 115 / 115 Weight 91.2 kg 92.4 kg 92.8 kg Laboratory Data (Last 24 Hr):: 01/22/22 07:30 Sodium 134 L Potassium 3.9 Chloride 104 Carbon Dioxide 24 BUN 21 Creatinine 0.81 Glucose 160 H Calcium 9.0 Phosphorus 2.9 Magnesium 2.0 Triglycerides 281 H Nutrition Assessment:: Please refer to the Notes section of the EMR for the most 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 - Plan Patient continues on PPN, today is day 3. Discussed with provider and he would like volume/rate to not exceed 80 ml/hr. Provider aware that we are unable to reach goal Kcal with peripheral access. Current PPN/lipids only at about 60% of goal kcal. Triglycerides trending up each day, notified provider and he would like to hold lipids today. Patient is for transfer to [facility], awaiting bed. Provider would like to continue PPN. For day 3 of PN administration, the following will be ordered: Macronutrients Amino acids 71 grams/day Dextrose 84 grams/day Lipids - NONE Micronutrients Sodium chloride 90 mEq Sodium acetate 80 mEq Potassium phosphate 24 mMol Potassium chloride 30 mEq Magnesium sulfate 8.12 mEq Calcium gluconate 4.6 mEq Multivitamins 10 mL Trace Elements 10 mL Additional additives: thiamine 100 mg and folic acid 1 mg Total volume 1803 mL to be infused over 24 hrs will provide 571 kcal/day Final osmolarity 892 mOsm/L (maximum for PPN is 900 mOsm/L) Labs to be ordered per PN order protocol Pharmacy will follow and adjust parenteral nutrition orders on a daily basis. Thank you.
[2022-01-22] MEDS ORDERED: D5W IV SCH (16:00)
[2022-01-22] MEDS ORDERED: PERIPHERAL TPN IV SCH (16:00)
[2022-01-22] MEDS ORDERED: AMINO ACIDS 4.25% IV SCH (16:00)
--- NOTE | 2022-01-22 16:11 | Discharge Summary ---
Date of Service January 22, 2022 Admission HPI Per Admitting Provider Julio Gupta is a 61-year-old male with a past medical history significant for hypertension, hyperlipidemia, DM2, UE DVT in 2017, and tobacco use who presents today with ongoing abdominal pain and constipation. Last Thursday he had a fever at home which he took ibuprofen for which alleviated this, however the next day began experiencing abdominal pain. He had a telehealth visit with his PCP who started him on Augmentin for presumed diverticulitis, given symptoms and history of diverticula on colonoscopy. He received 3 doses of this and still has crampy abdominal pain and developed some vomiting and multiple episodes of non-bloody emesis since last evening. He has not had a bowel movement since Thursday or Thursday. He has not had any more fevers. Abdominal pain does not radiate, is currently mild. In ED, he is hemodynamically stable, vital signs within normal limits. Labs significant for WBC 15.33, glucose 171, calcium elevated 10.3. CT A/P showed diverticulitis in sigmoid colon without perforation or abscess. Principal Diagnosis 1. Severe acute sigmoid diverticulitis 2. Leukocytosis-resolved Discharge Exam GENERAL: 61 yo Well-developed, well-nourished WM. NAD. LUNGS: Clear to auscultation bilaterally. No W/R/R. CARDIOVASCULAR: Regular rate and rhythm. ABDOMEN: Soft, non-distended, non-tender. BS normoactive x 4 quad. No guarding or rigidity. EXTREMITIES: No edema. Non-tender. Peripheral pulses +2/4. NEUROLOGIC: A&O x3. PSYCHIATRIC: Cooperative. Appropriate mood and affect. SKIN: Warm, dry, intact. No rashes or lesions. Discharge Data Allergies Allergy/AdvReac Type Severity Reaction Status Date / Time No Known Allergies Allergy Verified 10/11/21 08:44 Consultations 01/19/22 11:53 Consult General Surgery Routine ED Decision to Admit Stat 01/19/22 13:23 Consult Gastroenterology Routine 01/21/22 07:05 Consult Infectious Diseases Routine Ordered Studies Abdomen/Pelvis CT 01/19/22 09:25 CT abd pelvis IV con only CLINICAL HISTORY: LLQ pain, constipation, vomiting TECHNIQUE: Helical axial images of the abdomen and pelvis were obtained and displayed. Automated dose lowering techniques and/or adjustment according to patient size were utilized for this exam. This exam was performed with intravenous contrast. CT DOSE: 669.82 mGy.cm COMPARISON: None available at the time of this dictation. FINDINGS: Lower chest: No acute abnormality Liver: Unremarkable. No focal lesions are seen. Gallbladder and biliary tree: No calcified gallstones. Normal caliber wall. No intra- or extrahepatic biliary ductal dilation. Pancreas: Unremarkable, no focal lesions. Spleen: Unremarkable. Adrenals: 16 mm right adrenal nodule is seen. Kidneys and ureters: Subcentimeter hypodensities are too small to characterize. Bladder: Unremarkable. Reproductive organs: Unremarkable. Bowel: Wall thickening and fat stranding is seen in the sigmoid colon. No evidence of perforation or abscess formation is seen. There is gaseous distention of the remainder of the colon. The appendix is normal. A hiatal hernia is seen. Lymph nodes Retroperitoneal: Unremarkable. Mesenteric: Unremarkable. Pelvic: Unremarkable. Peritoneum: Fat stranding is noted about the sigmoid colon. Vessels: Atherosclerotic calcifications are seen. Abdominal wall: Bilateral fat-containing inguinal hernias are seen. Bones: Degenerative changes in the visualized spine. Right total hip arthroplasty is seen. IMPRESSION: Findings are compatible with acute diverticulitis in the sigmoid colon without evidence of perforation or abscess. ACT 112: Negative or not required by law. Electronically signed by: Shadi Weeks M.D. 01/19/2022 11:12 AM Chest X-Ray 01/20/22 05:49 XR chest 1V portable HISTORY: NG tube insertion COMPARISON: Chest 02/14/2020. FINDINGS: Nasogastric tube terminates in the stomach. The lung apices are not entirely included on this study. No evidence for pulmonary edema. The cardiac silhouette is top normal in size. No pleural effusions. No definite pneumothorax. Right basilar linear densities favor subsegmental atelectasis. IMPRESSION: Nasogastric tube terminates in the stomach. ACT 112: Negative or not required by law. Electronically signed by: Juan M Hurtado M.D. 01/20/2022 8:13 AM KUB X-Ray 01/20/22 12:44 XR KUB/Abdomen 1 view CLINICAL HISTORY: r/o obstruction TECHNIQUE: 1 view of the abdomen was obtained. Comparison: Comparison is made to CT abdomen pelvis 01/19/2022 FINDINGS: Lung bases are unremarkable. Degenerative changes are seen in the visualized skeleton. There is a total right hip arthroplasty. The bowel gas pattern is nonobstructive. Gaseous distention of multiple small bowel loops are seen. No evidence of pneumoperitoneum. IMPRESSION: No evidence of bowel obstruction. Prominent large bowel gas is seen. No evidence of pneumoperitoneum to suggest perforation in this patient with known diverticulitis. ACT 112: Negative or not required by law. Electronically signed by: Shadi Weeks M.D. 01/20/2022 2:01 PM Abdomen/Pelvis CT 01/21/22 14:55 CT abd pelvis IV con only CLINICAL HISTORY: f/u sigmoid diverticulitis/abscess COMPARISON STUDY: 01/19/2022 CT DOSE: 993.21 mGycm TECHNIQUE: Standard CT of the Abdomen and Pelvis was performed with IV contrast. A dose lowering technique was utilized adhering to the principles of ALARA. Contrast Volume: Optiray 320, 94 ml. The patient did not receive oral contrast. FINDINGS: Lung base: The lung bases are clear. Abdominal cavity: There is no evidence for abdominal mass, adenopathy or ascites. Bilateral inguinal hernias are present containing peritoneal fat. Liver: There is homogeneous attenuation of the liver parenchyma. There is no evidence for enhancing mass lesion. Spleen: There is homogeneous attenuation of the splenic parenchyma. There is no enhancing mass lesion. Pancreas: There is homogeneous attenuation of the pancreatic parenchyma. There is no evidence for mass lesion or peripancreatic fluid collection. Gall Bladder: The gallbladder is well distended with no evidence for intraluminal calculi, wall thickening or pericholecystic edema. Adrenal glands: The adrenal glands are normal in size and attenuation. There is a 16 mm low-attenuation right adrenal nodule again seen most characteristic of an adenoma. Kidneys: There is homogeneous attenuation of the renal parenchyma bilaterally. There is again evidence for 2 contiguous calculi within the lower pole of the left kidney measuring approximately 7 to 8 mm. No other renal calculi identified. There is no evidence for hydronephrosis bilaterally. There is no evidence for enhancing mass. Bowel: There is again a small hiatal hernia. Extensive acute diverticulitis is again seen involving the sigmoid colon with mucosal thickening and perisigmoidal inflammatory changes present. Findings are not significantly changed from previous study with no perforation or abscess. However, there is now mild to moderately dilated loops of small bowel throughout the abdomen and pelvis and fluid-filled loops of colon as well. The findings are most characteristic of interval development of an ileus. There is no evidence for free air. Bladder: The bladder is distended with no evidence for focal mass, calculus or diverticulum. : There is no evidence for pelvic mass or adenopathy. There is no evidence for pelvic ascites. The prostate is mildly enlarged. Vasculature: There is no evidence for aneurysmal dilatation of the abdominal aorta. Osseous structures: There is no acute osseous pathology. The patient is status post right hip replacement. IMPRESSION: 1. Compared to previous examination, there is again extensive sigmoid diverticulitis which is not significantly changed. No interval perforation or abscess. 2. However, there has been interval development of dilatation of both the large and small bowel with fluid levels present most characteristic of interval development of an ileus. 3. Small hiatal hernia is again seen. 4. Nonobstructing left renal calculi are again seen. 5. Additional nonacute findings are delineated above. ACT 112: Negative or not required by law. Electronically signed by: Gal Veliz M.D. 01/21/2022 4:12 PM Hospital Course (1) Diverticulitis: - Symptom onset 5 days ago with LLQ pain, fevers, development of n/v last evening, 3 doses of PO Augmentin without improvement. - CT A/P: sigmoid diverticulitis w/ gaseous distention on remainder of colon. - NPO with Zosyn q8h. 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 - General surgery ordered PPN, pharmacy managing - May require surgical intervention as there is concern for possible intramural abscess, repeat CT a/p done 01/21, stable findings ?ileus but had a large BM following scan - GS advanced diet to ice chips, tolerating thus far - consulted ID to determine need for home IV antibiotics, recommended advancing diet and sending home with oral abx - Dr. Cast continues to be concerned that pt may require surgical intervention during this hospitalization, has recommended transfer to tertiary center for colorectal surgery to manage. Accepted to [facility]. (2) Benign essential hypertension: - BP meds on hold d/t NPO status - Normotensive (3) Hypercholesterolemia: - Cholesterol meds on hold d/t NPO status (4) Diabetes mellitus: - Hold metformin, order Accuccheks q6h (d/t NPO status) + SSI for correction - A1c October 2021--> 6.6% (5) Tobacco abuse: - Smokes 1/2 PPD, declines nicotine patch at this time. Plan Notified that bed assignment received for this patient at [facility]. He is medically stable for discharge/transfer and can be transported via ground BLS. I have discussed this case with Dr. Cast as well as attending, Dr. Klein. Dr. Klein will also see this patient prior to discharge. Total Time Total Time Spent Total Time Spent (In Minutes): >30 minutes Discharge Plan Discharge Items Patient Disposition: Transfer Acute Care Hospital Reason For Visit: Constipation Discharge Diagnosis: Severe diverticulitis Activity: Resume your previous activity Non-emergency contact: Primary Care Provider and Surgeon Call non-emergency contact if: you have any medication questions and your symptoms worsen Follow-up/Referrals: Howard Lockhart MD [Primary Care Provider] - Diet: Nothing by Mouth Addtl Attending Provider Instructions: You have been hospitalized due to findings of severe diverticulitis in your sigmoid colon. You are being treated with IV antibiotics (Zosyn) and also started on nutrition through your IV. Although you have shown improvement, there is still concern due to the severity of your colon on CT imaging that you may need to have surgery. For this reason, you are being transferred to [facility] under the care of colorectal surgery. Pending Studies at Discharge: No Stand-Alone Forms: My [facility] Skilled Items Patient informed of condition?: Yes DNR: No Discharge Level of Care: Other Communicable Disease: No Discharge Prognosis: Stable Lines: Peripheral IV Urinary Catheter: No Medications and DC Order Prescriptions: New Zosyn in dextrose (iso-osm) 4.5 gram/100 mL piggyback 4.5 g IV Q8H Qty: 1200 0RF Continued omega-3 fatty acids 1,000 mg capsule 1,000 mg PO BID Qty: 180 3RF (DME) blood-glucose meter [OneTouch Verio Meter] Misc See Rx Instructions .ROUTE .MEDSUPPLY Qty: 1 0RF Rx Instructions: As directed one timwe a day Dx E11.9 (DME) lancets [OneTouch Delica Lancets] 33 gauge misc See Rx Instructions .ROUTE .MEDSUPPLY Qty: 50 2RF Rx Instructions: As directed 1 time a day Dx E11.9 (DME) OneTouch Verio test strips Strip See Rx Instructions .ROUTE .MEDSUPPLY Qty: 50 3RF Rx Instructions: As directed 1 x daily Dx E11.9 fenofibrate 54 mg tablet 54 mg PO DAILY Qty: 90 3RF atorvastatin 20 mg tablet 20 mg PO DAILY Qty: 90 1RF metformin 500 mg tablet 500 mg PO DAILY Qty: 90 1RF lisinopril 10 mg tablet 10 mg PO DAILY Qty: 90 3RF Discontinued amoxicillin-pot clavulanate 875-125 mg tablet 1 tab PO BID Qty: 20 0RF Admission Data Admit Date/Time: 01/19/22 12:16 Attending Provider: Diamond Klein Admit Provider: Cherri Moore Primary Care Provider: Howard Lockhart Other Providers: Demarco Cast ; Torsten Ryder ; Ede Albarran ; Scott Lynn ; Ashia Pena ; Jose Luis Quevedo I. ; Bao De Anda II ; Carmen March ; Andre Baca ; Demarco Bella Supervising Physician Co-Signing Physician Notes PA Supervision Note: I personally saw and examined the patient. I verified all de paz points and agree with GEORGE Alatorre with the following exceptions and/or additions: Pt has some lower abd pain but feels improved. Had 2 BMs in the lasat 24 hours. No CP or OSB. Still with dilated colon. No N/V. O- Vitals reviewed Gen: [AAOx3, NAD] HEENT: [anicteric sclerae, EOMI] CV: [RRR no mgr nl S1S2] Pulm: [CTAB no wcr] Abd: [hypoactive BS, softly distended, nontender,no masses] Ext: [no edema] Skin: [no rashes, warm/dry] Neuro: [full strength throughout] A/P-61 yo male here with severe acute diverticulitis, needs transfer in case of need for colorectal surgery. continue abx, PPN, NPO status Coding Level of Care Code D/C DAY MANAGEMENT >30 MINS Diagnoses Diverticulitis K57.92 Benign essential hypertension I10 Hypercholesterolemia E78.00 Diabetes mellitus E11.9 Tobacco abuse Z72.0
== END 2022-01-22 18:33 | disposition short-term general hospital (02) | DRG 392 ==
LOC: ED 09:06 → SUATTDRO 12:16 → 3N 12:16